=== PATIENT | female | born 1930 | race Caucasian/White ===

== ENCOUNTER → 2017-03-01 | Outpatient (REF) | payer MEDICARE ==
[~2017-03-01] MED LIST: ASCO500T PO; ASPI1TAB PO; CHOL4POW4 PO; FISH100049 PO; GABA600T PO; LEVO150T7 PO; OMEP40CA2 PO; OXYB5TA PO; PROP80CA PO; VITA200038 PO
[2017-03-01 19:44] LABS: MEAN CORPUSCULAR HEMOGLOBIN 36.4 pg (27.0-33.0); MEAN CORPUSCULAR HGB CONC 34.1 g/dl (32.0-36.5); MEAN CORPUSCULAR VOLUME 106.8 fl (80.0-96.0); RED CELL DISTRIBUTION WIDTH 12.8 % (11.5-14.5); WHITE BLOOD COUNT 7.9 K/mm3 (4.0-10.0)
[2017-03-01 19:49] LABS: ALBUMIN 3.3 GM/DL (3.2-5.2); ALKALINE PHOSPHATASE 81 U/L (45-117); ALT/SGPT 24 U/L (12-78); ANION GAP 5 MEQ/L (8-16); AST/SGOT 17 U/L (15-37); BILIRUBIN,TOTAL 0.4 MG/DL (0.2-1.0); BLOOD UREA NITROGEN 19 MG/DL (7-18); CALCIUM LEVEL 8.6 MG/DL (8.8-10.2); CARBON DIOXIDE LEVEL 30 MEQ/L (21-32); CHLORIDE LEVEL 108 MEQ/L (98-107); CHOLESTEROL LEVEL 194 MG/DL (<200); CREATININE FOR GFR 1.13 MG/DL (0.55-1.02); FREE T4 0.73 NG/DL (0.76-1.46); GLOMERULAR FILTRATION RATE 48.6 (>32); GLUCOSE, FASTING 83 MG/DL (83-110); POTASSIUM SERUM 4.6 MEQ/L (3.5-5.1); SODIUM LEVEL 143 MEQ/L (136-145); TOTAL PROTEIN 6.6 GM/DL (6.4-8.2); TRIGLYCERIDES LEVEL 595 MG/DL (<150)
== END ==
LOC: M SFHCADAM 16:01
PROVIDERS: ATTEND Family Medicine
DX: I11.9 Hypertensive heart disease without heart failure (principal); E03.9 Hypothyroidism, unspecified; E78.2 Mixed hyperlipidemia; E55.9 Vitamin D deficiency, unspecified

== ENCOUNTER → 2017-04-24 | Outpatient (CLI) | payer MEDICARE ==
[~2017-04-24] MED LIST changes: +E-Z-GAS II EFFERVESCENT PACKET (SODIUM BICARB./CITRIC ACID/SIMETHICONE) As Ordered ONE; +E-Z-HD 98% w/w 340GM SUSP BTL As Ordered ONE; +E-Z-PAQUE 96% w/w SUSP 176GM BTL As Ordered ONE; +HYOS125TA PO; +LEVO200T31 PO; +LORA0.5T11 PO; +MORP20SO3 PO; -OXYB5TA PO; +OXYB5TAB10 PO
--- NOTE | 2017-04-25 10:43 | REP ---
Clinical: dysphagia. Technique: Single and double contrast technique using barium sulfate substrates with real time fluoroscopic evaluation. Findings: Normal motility through the oropharynx and hypopharynx is appreciated without obvious mass/mass effect or contour abnormality. The esophagus demonstrates normal mucosal outline and distension without ulcerations, polyps, mass lesions, mucosal irregularities or extrinsic abnormalities. No areas of stenosis or stricture appreciated. No hiatal hernia or evidence for reflux during examination. Limited images of the stomach and duodenum demonstrate grossly normal appearance. Total fluoroscopic time: 1 minute 27 seconds . Impression: Normal esophagram/barium swallow study. Signed by Ezequiel Hernandez MD 04/25/2017 10:33 A
== END ==
LOC: M RAD 07:59
PROVIDERS: ATTEND Internal Medicine Gastroenterology
DX: K22.4 Dyskinesia of esophagus (principal)

== ENCOUNTER → 2017-05-12 | Outpatient (CLI) | payer MEDICARE ==
[~2017-05-12] VITALS: Ht 167.6 cm; Wt 88.5 kg
[~2017-05-12] MED LIST changes: -E-Z-GAS II EFFERVESCENT PACKET (SODIUM BICARB./CITRIC ACID/SIMETHICONE) As Ordered ONE; -E-Z-HD 98% w/w 340GM SUSP BTL As Ordered ONE; -E-Z-PAQUE 96% w/w SUSP 176GM BTL As Ordered ONE; +LIDOCAINE 2% INJ 100 MG/5 ML SDV (FOR ANES.) As Ordered ONE; +NS 1,000 ML IV ONE; +PROPOFOL 200 MG/20 ML VIAL As Ordered ONE
--- NOTE | 2017-05-12 07:48 | ROOR ---
Patient Name: Sunita Moreland Procedure Date: 05/12/2017 7:28 AM Date of : 1930 Age: 86 Room: [facility] Gender: Female Note Status: Finalized Procedure: Upper GI endoscopy Indications: Dysphagia Providers: Sloan VICTOR MD Referring MD: Piyush Sauer MD Requesting Provider: Medicines: Monitored Anesthesia Care Complications: No immediate complications. Procedure: Pre-Anesthesia Assessment: - The heart rate, respiratory rate, oxygen saturations, blood pressure, adequacy of pulmonary ventilation, and response to care were monitored throughout the procedure. The Endoscope was introduced through the mouth, and advanced to the second part of duodenum. The upper GI endoscopy was accomplished without difficulty. The patient tolerated the procedure well. Findings: The esophagus was normal. The stomach was normal. The examined duodenum was normal. No endoscopic abnormality was evident in the esophagus to explain the patient's complaint of dysphagia. It was decided, however, to proceed with dilation of the entire esophagus. The scope was withdrawn. Dilation was performed with a Cerrato dilator with no resistance at 54 Fr. Impression: - Normal esophagus. - Normal stomach. - Normal examined duodenum. - No endoscopic esophageal abnormality to explain patient's dysphagia. Empiric dilation with 54 Cerrato dilator without resistance. - No specimens collected. Recommendation: - Observe patient's clinical course. - I anticipate no further need for intervention. - Continue present medications. Sloan Victor MD Sloan VICTOR MD 05/12/2017 7:47:44 AM This report has been signed electronically. Number of Addenda: 0 Note Initiated On: 05/12/2017 7:28 AM Estimated Blood Loss: Estimated blood loss: none.
[2017-05-12 08:20] VITALS: BP 130/80
== END ==
LOC: M OPP 06:37
PROVIDERS: ATTEND Internal Medicine Gastroenterology
DX: R13.10 Dysphagia, unspecified (principal); K21.9 Gastro-esophageal reflux disease without esophagitis; M19.90 Unspecified osteoarthritis, unspecified site; Z86.73 Personal history of transient ischemic attack (TIA), and cerebral infarction without residual deficits; Z79.82 Long term (current) use of aspirin; Z79.899 Other long term (current) drug therapy; Z88.8 Allergy status to other drugs, medicaments and biological substances; Z91.018 Allergy to other foods; Z91.011 Allergy to milk products

== ENCOUNTER 2017-06-26 12:03 | Inpatient (IN) | payer MEDICARE ==
[~2017-06-26] VITALS: Ht 167.6 cm; Wt 92.5 kg
[~2017-06-26 12:03] MED LIST changes: -HYOS125TA PO; -LEVO200T31 PO; -LIDOCAINE 2% INJ 100 MG/5 ML SDV (FOR ANES.) As Ordered ONE; -LORA0.5T11 PO; -MORP20SO3 PO; -NS 1,000 ML IV ONE; -PROPOFOL 200 MG/20 ML VIAL As Ordered ONE
[2017-06-26] MEDS ORDERED: SUCRALFATE 1 GM TAB PO ONE (13:00)
[2017-06-26] MEDS ORDERED: NS 1,000 ML IV ONE (13:00)
[2017-06-26] MEDS ORDERED: PANTOPRAZOLE 40MG INJ (PROTONIX) (C9113) IV ONE (13:00)
[2017-06-26] MEDS ORDERED: ONDANSETRON 4MG/2ML VIAL (J2405) IV ONE (13:00)
[2017-06-26 13:08] LABS: BASO % 0.4 % (0.0-1.0); EOS # 0.3 K/mm3 (0.0-0.50); EOS % 2.9 % (0.0-3.0); LARGE UNSTAINED CELL # 0.4 K/mm3 (0.0-0.4); LARGE UNSTAINED CELL % 4.1 % (0.0-4.0); LYMPH # 3.2 K/mm3 (1.5-4.5); LYMPH % 35.2 % (24.0-44.0); MEAN CORPUSCULAR HEMOGLOBIN 35.3 pg (27.0-33.0); MEAN CORPUSCULAR HGB CONC 34.1 g/dl (32.0-36.5); MEAN CORPUSCULAR VOLUME 103.6 fl (80.0-96.0); MONO # 0.5 K/mm3 (0.0-0.8); NEUTROPHILS # 4.6 K/mm3 (1.8-7.7); NEUTROPHILS % 51.4 % (36.0-66.0); PLATELET COUNT, AUTOMATED 188 k/mm3 (150-450); RED CELL DISTRIBUTION WIDTH 12.6 % (11.5-14.5)
[2017-06-26] MEDS: MORPHINE 2 MG/ML 1ML SYRINGE IV PRN ×2 (13:12→19:34)
[2017-06-26] MEDS ORDERED: GASTROGRAFIN SOLUTION 30ML PO ONE (13:15)
[2017-06-26 13:20] LABS: INR 0.95
[2017-06-26 13:29] LABS: ALBUMIN 2.9 GM/DL (3.2-5.2); ALBUMIN/GLOBULIN RATIO 1.04 (1.00-1.93); ALKALINE PHOSPHATASE 64 U/L (45-117); ALT/SGPT 19 U/L (12-78); ANION GAP 6 MEQ/L (8-16); AST/SGOT 14 U/L (15-37); BILIRUBIN,DIRECT 0.1 MG/DL (0.0-0.2); BILIRUBIN,TOTAL 0.4 MG/DL (0.2-1.0); BLOOD UREA NITROGEN 24 MG/DL (7-18); CALCIUM LEVEL 8.6 MG/DL (8.8-10.2); CARBON DIOXIDE LEVEL 28 MEQ/L (21-32); CHLORIDE LEVEL 109 MEQ/L (98-107); CREATININE FOR GFR 0.88 MG/DL (0.55-1.02); GLOMERULAR FILTRATION RATE > 60.0 (>32); GLUCOSE, FASTING 90 MG/DL (83-110); POTASSIUM SERUM 4.1 MEQ/L (3.5-5.1); SODIUM LEVEL 143 MEQ/L (136-145); TOTAL PROTEIN 5.7 GM/DL (6.4-8.2)
[2017-06-26] MEDS ORDERED: GASTROGRAFIN SOLUTION 30ML (Q9963) PO ONE (13:45)
--- NOTE | 2017-06-26 14:08 | REP ---
Clinical: Lower chest and abdominal pain . Comparison: 09/07/2016 . Technique: PA and lateral. Findings: The mediastinum and cardiac silhouette are normal. The lung christiansen demonstrate chronic changes without acute consolidation, effusion, or pneumothorax. The skeletal structures are intact and normal. Evidence of prior bilateral axillary node dissection. Impression: 1. Chronic stable changes. No acute cardiopulmonary process. Signed by Ezequiel Hernandez MD 06/26/2017 02:00 P
[2017-06-26] MEDS ORDERED: ISOVUE-370 76% 100ML VIAL (Q9967) As Ordered ONE (14:41)
--- NOTE | 2017-06-26 15:26 | REP ---
Clinical: GI bleed. Technique: Axial contrast enhanced images from the lung bases to the pubic symphysis using oral and 100 ml Isovue 370 intravenous contrast material with coronal and sagittal re-formations. Comparison: 09/26/2006. Findings: Lung bases demonstrate chronic interstitial changes. Visualized portions of the heart and pericardium are normal. Liver, spleen, pancreas, and bilateral adrenal glands are normal. The patient is status post cholecystectomy with compensatory intrahepatic and extrahepatic biliary ductal dilatation. Kidneys demonstrate bilateral parapelvic cysts (left greater than right). The enteric system demonstrates diffuse colonic and sigmoid diverticulosis. There is no evidence for bowel obstruction or acute inflammatory process. Subtle mural thickening involving the mid sigmoid colon as well as the cecum/ very proximal ascending colon with small adjacent lymph nodes cannot be excluded and may warrant further evaluation including colonoscopy. Pelvis demonstrates normal bladder and evidence for prior hysterectomy. No ascites. No obvious intraperitoneal or retroperitoneal adenopathy. No obvious mass lesion. Atherosclerotic changes of the aorta and vasculature noted without aneurysm or dissection. Surrounding musculoskeletal structures demonstrate age-related changes without focal osseous abnormality. Impression: 1. Diverticulosis. Colonoscopy should be considered as subtle mural thickening at the cecum/proximal ascending colon and mid sigmoid colon cannot be excluded. No obvious acute enteric process otherwise appreciated. 2. Bilateral renal parapelvic cysts. 3. No further acute abdominopelvic pathology appreciated. Signed by Ezequiel Hernandez MD 06/26/2017 03:18 P
[2017-06-26] MEDS ORDERED: LEVO200T31 PO (16:36)
[2017-06-26] MEDS ORDERED: MORPHINE 2 MG/ML 1ML SYRINGE IV PRN (17:30)
[2017-06-26] MEDS ORDERED: ONDANSETRON 4MG/2ML VIAL (J2405) IV PRN (17:30)
[2017-06-26] MEDS: CIPROFLOXACIN 400 MG in APPROPRIATE DILUENT 1 EA IV SCH (18:00)
[2017-06-26] MEDS: PERCOCET 5MG/325MG TAB PO PRN ×2 (19:34→23:10)
[2017-06-26] MEDS: LR 1,000 ML IV SCH (19:34)
[2017-06-26 20:03] LABS: THYROXINE (T4) 5.8 UG/DL (4.5-12.0)
[2017-06-26] MEDS: metroNIDAZOLE 500 MG in APPROPRIATE DILUENT 1 EA IV SCH (22:28)
[2017-06-26 23:35] VITALS: BP 140/60
[2017-06-26] MEDS: SENOKOT S TAB PO SCH (23:55)
[2017-06-26] MEDS: VITAMIN D 1,000 INTERNATIONAL UNITS TABLET PO SCH (23:56)
[2017-06-26] MEDS: GABAPENTIN 300 MG CAP PO SCH (23:56)
[2017-06-26] MEDS: oxyBUTYnin 5 MG TAB PO SCH (23:56)
[2017-06-26] MEDS: OMEGA-3 1050MG CAPSULE PO SCH (23:56)
[2017-06-26] MEDS: ASCORBIC ACID 500 MG TAB PO SCH (23:56)
[2017-06-26] MEDS: PANTOPRAZOLE 40MG INJ (PROTONIX) (C9113) IV SCH (23:57)
[2017-06-27] VITALS (9 sets, daily range): BP systolic 84–133; BP diastolic 46–75
[2017-06-27] MEDS: metroNIDAZOLE 500 MG in APPROPRIATE DILUENT 1 EA IV SCH ×3 (05:08→21:19)
[2017-06-27 05:40] LABS: MEAN CORPUSCULAR HEMOGLOBIN 35.5 pg (27.0-33.0); MEAN CORPUSCULAR HGB CONC 33.7 g/dl (32.0-36.5); MEAN CORPUSCULAR VOLUME 105.3 fl (80.0-96.0); WHITE BLOOD COUNT 5.6 K/mm3 (4.0-10.0)
[2017-06-27 06:04] LABS: ALBUMIN 2.5 GM/DL (3.2-5.2); ALBUMIN/GLOBULIN RATIO 0.96 (1.00-1.93); ALKALINE PHOSPHATASE 57 U/L (45-117); ALT/SGPT 29 U/L (12-78); ANION GAP 7 MEQ/L (8-16); AST/SGOT 57 U/L (15-37); BILIRUBIN,TOTAL 0.5 MG/DL (0.2-1.0); BLOOD UREA NITROGEN 15 MG/DL (7-18); CALCIUM LEVEL 8.1 MG/DL (8.8-10.2); CARBON DIOXIDE LEVEL 28 MEQ/L (21-32); CHLORIDE LEVEL 111 MEQ/L (98-107); CREATININE FOR GFR 0.85 MG/DL (0.55-1.02); GLOMERULAR FILTRATION RATE > 60.0 (>32); GLUCOSE, FASTING 93 MG/DL (83-110); MAGNESIUM LEVEL 2.1 MG/DL (1.8-2.4); SODIUM LEVEL 146 MEQ/L (136-145); TOTAL PROTEIN 5.1 GM/DL (6.4-8.2)
--- NOTE | 2017-06-27 06:38 | HPE ---
DATE OF ADMISSION: 06/26/2017 PRIMARY CARE PROVIDER: Dr. Sauer CHIEF COMPLAINT: Blood in the stool, generalized weakness and abdominal discomfort. 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 Charcot foot, right foot. The patient presented since Monday with intermittent bright red blood per rectum since Monday. Over the last 24 hours, two episodes of bowel movement that was not loose, regular but with blood and dark. Also, the patient reported periumbilical pain intermittently and also generalized weakness for the past one to two days. The patient denies any chest pain, pressure or discomfort. Denies any nausea or vomiting. No urinary complaints, no back pain. In the emergency department (ED) the patient was found to be more anemic than baseline. Baseline the patient has a hemoglobin of 14. In the ED the patient was found to have a hemoglobin of 11.1. Subsequently the patient was admitted for further care. CT scan appreciated showing two areas of thickening consistent with colitis or inflammatory change. ALLERGIES: KRISTY INHIBITORS, PSEUDOEPHEDRINE, TAPES, TRANDOLAPRIL, CAFFEINE, FRUITS, MILK, VEGETABLES, TRAZOREL, CEPHALOSPORINS, GEMFIBROZIL, TETRACYCLINE, HYDROCHLOROTHIAZIDE, PREGABALIN. PAST MEDICAL HISTORY: 1. Peripheral neuropathy. 2. Hypertension. 3. Non-Hodgkin's lymphoma, follicular type. 4. Breast cancer. 5. Hypothyroidism. 6. Diastolic Grade 1 diastolic dysfunction. 7. TIA. 8. Irritable bowel syndrome. 9. Dyslipidemia. 10. Gastrointestinal reflux disease (GERD). 11. Impaired fasting glucose. 12. Vitamin D deficiency. 13. Degenerative disc disease. 14. Squamous cell cancer of the nose. 15. Villous adenoma of the colon. 16. Obstructive sleep apnea. 17. Charcot foot, right lower extremity. PAST SURGICAL HISTORY: 1. Removal of lymphoma from the face and under right arm. 2. Hysterectomy. 3. Appendectomy. 4. Gallbladder removal. 5. Left breast lumpectomy. 6. Removal of squamous cell cancer of left lower medial calf. 7. Colonoscopy with removal of villous adenoma 2004, repeat colonoscopy was done six years ago. 8. Esophagogastroduodenoscopy (EGD) recently done and negative. FAMILY HISTORY: Father with deep venous thrombosis (DVT). Mother with breast cancer. SOCIAL HISTORY: The patient does not smoke and does not drink alcoholic beverages. No illicit drug use. REVIEW OF SYSTEMS: Reported blood mixed with stool as well as abdominal discomfort, generalized weakness. All other review of systems were negative. HOME MEDICATIONS: - vitamin C 500 mg by mouth nightly - vitamin D 2000 units by mouth nightly - cholestyramine 4 grams by mouth daily - fish oil one capsule by mouth nightly - gabapentin 600 mg by mouth twice a day - levothyroxine 200 mcg by mouth daily - omeprazole 40 mg by mouth nightly - oxybutynin 5 mg by mouth nightly - propranolol 80 mg by mouth nightly PHYSICAL EXAMINATION: VITAL SIGNS: Temperature 97.7, pulse 71, respirations 16, blood pressure 113/66, pulse oxygen 98% on room air. GENERAL: Patient alert and oriented times three. No acute distress. HEENT: Normocephalic atraumatic. PULMONARY: Bilaterally clear to auscultation. CARDIAC: Regular rate and rhythm. Normal S1, S2. ABDOMEN: Soft, nontender, positive bowel sounds. No rebound, no guarding. EXTREMITIES: No clubbing, cyanosis or edema. Charcot foot, right lower extremity. LABORATORY DATA: WBC 9, hemoglobin 10.4, hematocrit 31.9, platelets 188. Chemistries: Sodium 142, potassium 4.1, chloride 109, bicarbonate 28, BUN 24, creatinine 0.88, lactic acid 1.5, TSH 54 , free T4 2. ASSESSMENT AND PLAN: This is an 86-year-old female patient with underlying medical history of peripheral neuropathy, hypertension, non-Hodgkin's lymphoma, breast cancer, hypothyroidism, grade I diastolic dysfunction, irritable bowel dysfunction, dyslipidemia, gastrointestinal reflux disease (GERD), degenerative disc disease, Charcot foot, obstructive sleep apnea, transient ischemic attack (TIA) admitted with gastrointestinal (GI) bleed with evidence of colitis. PROBLEM LIST: 1. GI bleed with abdominal discomfort, possibly secondary to colitis versus diverticular bleed. Consulted padded products finisher, Dr. Hobbs. The patient recently had esophagogastroduodenoscopy, Protonix twice a day. Clear liquid diet tonight, nothing by mouth after midnight. Cipro, and Flagyl as per Dr. Hobbs, intravenous fluids. Consented for transfusion. Monitor hemoglobin and hematocrit. 2. Hypothyroidism. TSH is markedly elevated. Continue Synthroid. Will need to repeat TSH. 3. Gastrointestinal reflux disease (GERD). Continue proton pump inhibitor. 4. Irritable bowel syndrome. Followup GI recommendations, continue current medications. 5. Vitamin D deficiency. Continue supplementation. 6. History of transient ischemic attack (TIAs). Patient is on baby aspirin which was on hold at this time given GI bleed. 7. Hypertension. Given GI bleed, holding blood pressure medications at this time. Will monitor blood pressure. 8. Impaired fasting glucose. Will continue to monitor. The patient is currently with normal glucose. 9. Degenerative disc disease. Pre medication as ordered. 10. History of villous adenoma. The patient is might benefit from a repeat colonoscopy given new CT finding. 11. Charcot foot. Need outpatient followup with podiatry. 12. History of grade 1 diastolic dysfunction. The patient is euvolemic, strict intake and output, will continue to monitor daily weight. 13. Deep venous thrombosis (DVT) prophylaxis. Given the patient has active GI bleed, sequential compresssion device. DISPOSITION: Pending GI followup, clinical improvement.
[2017-06-27] MEDS: LEVOTHYROXINE 100MCG TABLET (0.1MG) PO SCH (06:43)
[2017-06-27] MEDS: CIPROFLOXACIN 400 MG in APPROPRIATE DILUENT 1 EA IV SCH ×2 (06:45→17:59)
--- NOTE | 2017-06-27 08:37 | IPNPDOC ---
Subjective Date Seen The patient was seen on 06/27/17. Subjective Chief Complaint/HPI The patient is a 86-year-old female admitted with a reason for visit of Gi Bleed. Events since last encounter Pt states she feels better today. She had a little abd pain earlier but states it has resolved. She denies any current bleeding. Denies CP, SOB. Constitutional: Denies: Chills, Fever Pulmonary: Denies: Dyspnea Cardiovascular: Denies: Chest Pain Gastrointestinal: Denies: Nausea, Vomiting, Abdominal Pain Objective Physical Examination General Exam: Positive: Alert, No Acute Distress Neck Exam: Positive: Supple, Negative: JVD Chest Exam: Positive: Clear to auscultation Heart Exam: Positive: Rate Normal, Regular Rhythm Abdomen Exam: Positive: Normal bowel sounds, Soft, Negative: Tenderness Extremity Exam: Negative: Edema Assessment /Plan Problems (1) GI bleed Status: Acute Problem Specific Plan: Consult Specialist, Monitor Clinically, Repeat Labs Problem Text: 06/27 - Abd CT: "Diverticulosis. Colonoscopy should be considered as subtle mural thickening at the cecum/proximal ascending colon and mid sigmoid colon cannot be excluded. No obvious acute enteric process otherwise appreciated. Bilateral renal parapelvic cysts. No further acute abdominopelvic pathology appreciated." Hgb trending down to 10.0 this am compared to earlier Hgb at admission which was 11.1. Is getting IVF. GI has been consulted. Is on Cipro and Flagyl. (2) Anemia due to gastrointestinal blood loss Status: Acute Problem Text: Her hemoglobin is down today but her anemia is not severe. We will continue to monitor carefully with a transfusion threshold somewhere below a hemoglobin of 9.0 (given her history of cerebrovascular and presumably other vascular disease). (3) Hypertension Status: Chronic Problem Specific Plan: Monitor Clinically Problem Text: 06/27 - BPs soft. Antihypertensive meds held. Getting IVF. (4) Hypothyroidism Status: Chronic Problem Specific Plan: Monitor Clinically, Repeat Labs Problem Text: 06/27 - TSH was very high at 54.3. On Synthroid 200 mcg. Will need to repeat TSH. (5) GERD (gastroesophageal reflux disease) Status: Chronic Problem Specific Plan: Monitor Clinically Problem Text: 06/27 - On Protonix 40 mg IV q12h. (6) Villous adenoma Problem Specific Plan: Consult Specialist, Monitor Clinically, Repeat Labs Problem Text: 06/27 - GI has been consulted. (7) IFG (impaired fasting glucose) Status: Chronic Problem Specific Plan: Monitor Clinically, Repeat Labs Problem Text: 06/27 - BS have been good. Monitor. (8) Diastolic dysfunction Status: Chronic Problem Specific Plan: Monitor Clinically Problem Text: 06/27 - Appears compensated. (9) TIA (transient ischemic attack) Status: Chronic Problem Specific Plan: Monitor Clinically Problem Text: Pt was on aspirin 81 mg but that is currently held due to GI bleed. (10) Irritable bowel syndrome (IBS) Status: Chronic Problem Specific Plan: Monitor Clinically Plan/VTE VTE Prophylaxis Ordered?: Yes (TEDs and SCDs ordered) Plan Family Medicine Attending Note: I saw and examined Ms. Moreland, discussed with FLORENCE Hinton. Agree with their note as documented. Ms. Moreland reports that she feels a little bit uncomfortable today, but generally she is feeling okay. Her last partially bloody bowel movement was before she reached the floor. She is scheduled for a colonoscopy tomorrow with Dr. Hobbs. I appreciate his input and will look forward to his findings. (full roll inspector) VS, I&O, 24H, Fishbone Vital Signs/I&O Vital Signs Date Time Temp Pulse Resp B/P (MAP) Pulse Ox O2 Delivery O2 Flow Rate FiO2 06/27/17 07:15 96.4 56 20 94/54 (67) 98 Nasal Cannula 2.0 I&O- Last 24 Hours up to 6 AM 06/27/17 06:00 Intake Total 700 ml Output Total 600 ml Balance 100 ml Laboratory Data 24H LABS Laboratory Tests 2 06/26/17 12:52: White Blood Count 9.0, Red Blood Count 3.13L, Hemoglobin 11.1L, Hematocrit 32.5L , Mean Corpuscular Volume 103.6H, Mean Corpuscular Hemoglobin 35.3H, Mean Corpuscular Hemoglobin Concent 34.1, Red Cell Distribution Width 12.6, Platelet Count 188, Neutrophils (%) (Auto) 51.4, Lymphocytes (%) (Auto) 35.2, Monocytes ( %) (Auto) 6.0H, Eosinophils (%) (Auto) 2.9, Basophils (%) (Auto) 0.4, Neutrophils # (Auto) 4.6, Lymphocytes # (Auto) 3.2, Monocytes # (Auto) 0.5, Eosinophils # (Auto) 0.3, Basophils # (Auto) 0.0, Large Unclassified Cells % 4.1H, Large Unclassified Cells # 0.4, Prothrombin Time 12.8, Prothromb Time International Ratio 0.95, Anion Gap 6L, Glomerular Filtration Rate > 60.0, Calcium Level 8.6L, Aspartate Amino Transf (AST/SGOT) 14L, Alanine Aminotransferase (ALT/SGPT) 19, Alkaline Phosphatase 64, Total Bilirubin 0.4, Direct Bilirubin 0.1, Total Protein 5.7L, Albumin 2.9L, Albumin/Globulin Ratio 1.04, Lipase 63L 06/26/17 13:15: Lactic Acid Level 1.5 06/26/17 15:12: Urine Appearance CLEAR, Urine Color STRAW, Urine pH 5.0, Urine Specific [place] 1.008, Urine Protein NEGATIVE, Urine Glucose (UA) NEGATIVE, Urine Ketones NEGATIVE, Urine Urobilinogen 0.2, Urine Bilirubin NEGATIVE, Urine Leukocyte Esterase NEGATIVE, Urine Blood NEGATIVE, Urine Nitrite NEGATIVE, Urine WBC (Auto ) 0, Urine RBC (Auto) 2, Urine Hyaline Casts (Auto) 0, Urine Bacteria (Auto) NEGATIVE, Urine Squamous Epithelial Cells 0, Urine Sperm (Auto) 06/26/17 19:09: Thyroid Stimulating Hormone (TSH) 54.300H, Free Thyroxine Index 2.0, Thyroxine ( T4) 5.8, Triiodothyronine (T3) Uptake 34 06/27/17 05:21: Anion Gap 7L, Glomerular Filtration Rate > 60.0, Blood Urea Nitrogen 15, Creatinine 0.85, Sodium Level 146H, Potassium Level 4.0, Chloride Level 111H, Carbon Dioxide Level 28, Calcium Level 8.1L, Aspartate Amino Transf (AST/SGOT) 57H, Alanine Aminotransferase (ALT/SGPT) 29, Alkaline Phosphatase 57, Total Bilirubin 0.5, Total Protein 5.1L, Albumin 2.5L, Magnesium Level 2.1, Albumin/ Globulin Ratio 0.96L CBC/BMP Laboratory Tests 06/26/17 12:52 Red Blood Count 3.13 L, Mean Corpuscular Volume 103.6 H, Mean Corpuscular Hemoglobin 35.3 H, Mean Corpuscular Hemoglobin Concent 34.1, Red Cell Distribution Width 12.6, Neutrophils (%) (Auto) 51.4, Lymphocytes (%) (Auto) 35.2, Monocytes (%) (Auto) 6.0 H, Eosinophils (%) (Auto) 2.9, Basophils (%) ( Auto) 0.4, Neutrophils # (Auto) 4.6, Lymphocytes # (Auto) 3.2, Monocytes # (Auto ) 0.5, Eosinophils # (Auto) 0.3, Basophils # (Auto) 0.0 06/26/17 19:09 06/27/17 00:17 06/27/17 05:21 Red Blood Count 2.80 L, Mean Corpuscular Volume 105.3 H, Mean Corpuscular Hemoglobin 35.5 H, Mean Corpuscular Hemoglobin Concent 33.7, Red Cell Distribution Width 13.0, Calcium Level 8.1 L, Aspartate Amino Transf (AST/SGOT) 57 H, Alanine Aminotransferase (ALT/SGPT) 29, Alkaline Phosphatase 57, Total Bilirubin 0.5, Total Protein 5.1 L, Albumin 2.5 L Tom Salter RPA-Arianna Jun 27, 2017 8:37 am Carlton Ward MD Jun 28, 2017 10:59 pm
[2017-06-27] MEDS: PANTOPRAZOLE 40MG INJ (PROTONIX) (C9113) IV SCH ×2 (09:52→21:23)
[2017-06-27] MEDS: SENOKOT S TAB PO SCH ×2 (09:52→21:22)
[2017-06-27] MEDS: CHOLESTYRAMINE 4 GM PWD PKT PO SCH (09:52)
[2017-06-27] MEDS: GABAPENTIN 300 MG CAP PO SCH ×2 (09:53→21:21)
[2017-06-27] MEDS: LR 1,000 ML IV SCH ×3 (11:34→23:04)
[2017-06-27] MEDS: VITAMIN D 1,000 INTERNATIONAL UNITS TABLET PO SCH (21:00)
[2017-06-27] MEDS: ASCORBIC ACID 500 MG TAB PO SCH (21:00)
[2017-06-27] MEDS: OMEGA-3 1050MG CAPSULE PO SCH (21:00)
[2017-06-27] MEDS ORDERED: BISACODYL 5 MG TAB PO ONE (21:15)
[2017-06-27] MEDS ORDERED: GOLYTELY SOLN 4000 ML BTL PO ONE (21:15)
[2017-06-27] MEDS: oxyBUTYnin 5 MG TAB PO SCH (21:21)
[2017-06-28] VITALS (22 sets, daily range): BP systolic 100–139; BP diastolic 51–96; O2SAT 87–98
--- NOTE | 2017-06-28 00:20 | CR.PDOC ---
[facility] Consultation Consultation DATE OF CONSULTATION: Jun 27, 2017 at 18;30 PRIMARY CARE PHYSICIAN: Alec REFERRING PROVIDER: Dr. Shook ATTENDING PHYSICIAN: Dr. Shook REASON FOR CONSULTATION/CHIEF COMPLAINT: rectal bleeding and abnormal CT scan abdomen. HISTORY OF PRESENT ILLNESS: 86-year-old female patient with peripheral neuropathy, HTN, non-Hodgkin's lymphoma, gastrointestinal reflux disease (GERD) , history of villous adenoma of the colon in 2004, presented since Monday with intermittent bright red blood per rectum since Monday -- GI consulted for the same. Patient currently still having abdominal pain with atleast 2 bowel movements today. Denies any nausea or vomiting. No urinary complaints, no back pain. Also reports weight loss and loss of appetite. ALLERGIES: reviewed. KRISTY INHIBITORS, PSEUDOEPHEDRINE. PAST MEDICAL HISTORY: as above. PAST SURGICAL HISTORY: Hysterectomy, Appendectomy. Gallbladder removal. FAMILY HISTORY: no GI cancers. SOCIAL HISTORY: The patient does not smoke and does not drink alcoholic, No illicit drug use. Prior Endosocpies: Colonoscopy with removal of villous adenoma 2004, repeat colonoscopy - patient unsure if she had one. . Esophagogastroduodenoscopy (EGD) recently done and negative. REVIEW OF SYSTEMS: reviewed. GI: as above CVS; SOB, no chest pain Resp: some SOB. PHARMACY OPERATIONS MANAGER; generalized wekaness. Musculoskeletal: arthritis. ; no burning. HOME MEDICATIONS: reviewed. not on Plavix or anticoagulants. PHYSICAL EXAMINATION: VITAL SIGNS: Reviewed., GENERAL: AAO x 3. No acute distress. HEENT: Normocephalic atraumatic. PULMONARY: Bilaterally clear to auscultation. CARDIAC: Regular rate and rhythm. Normal S1, S2. ABDOMEN: Soft, nontender, positive bowel sounds. No rebound, no guarding. EXTREMITIES: No clubbing, cyanosis or edema. Charcot foot, right lower extremity. LABORATORY DATA: reviewed. CT abdomen: reviewed. Impression: -- Abnormal CT scan adbomen and h/o TV adenoma inpast -- Need to r/o colon mass. -- Recent work up for GERD by Dr. Victor - inclduing esophagogram - normal. Recommendations: -- CLear liquid diet -- Golytely 4 litres to be completed by 10 AM tomorrow. -- Patient and her educated about the Colonoscopy procedure in detail including indications, benefits, risks, and alternatives including no intervention. Patient wanted to know what is going on and agreed with procedure. Consent signed. - NPO except medications after the above preparation. - Avoid NSAIDs. plan of care discussed with patient and primary team. Allergies Coded Allergies: KRISTY Inhibitors (Verified Allergy, Unknown, 06/26/17) Pseudoephedrine (Verified Allergy, Unknown, TROUBLE BREATHING, 06/26/17) TAPE (Verified Allergy, Unknown, 06/26/17) Trandolapril (Verified Allergy, Unknown, 06/26/17) Caffeine (Verified Adverse Reaction, Severe, SHAKINESS,CANT SLEEP, 06/26/17) FRUIT (Verified Adverse Reaction, Intermediate, IBS SYMPTOMS, 06/26/17) Milk-related Compounds (Verified Adverse Reaction, Intermediate, IBS SYMPTOMS, 06/26/17) VEGETABLES (Verified Adverse Reaction, Intermediate, IBS SYMPTOMS, 06/26/17) Anastrozole (Verified Adverse Reaction, Mild, JOINT SWELLING, 06/26/17) Cephalosporins (Verified Adverse Reaction, Mild, BAD TASTE IN MOUTH, ) Gemfibrozil (Verified Adverse Reaction, Mild, BACKACHE, 06/26/17) Tetracycline (Verified Adverse Reaction, Mild, DOXYCYCLINE DYSPHAGIA, ) Hydrochlorothiazide (Verified Adverse Reaction, Unknown, INSOMNIA, 06/26/17) Pregabalin (Verified Adverse Reaction, Unknown, DISSINESS, BLURRED VISION , 06/26/17) Home Medications Scheduled Ascorbic Acid (Ascorbic Acid) 500 Mg Tab, 500 MG PO QHS, (Reported) Cholecalciferol (Vitamin D-3) 2,000 Unit Tab, 2,000 UNIT PO QHS, (Reported) Cholestyramine (Cholestyramine) 4 Gm Pow, 4 GM PO DAILY, (Reported) Fish Oil (Fish Oil 1000 mg) 1 Cap Cap, 1 CAP PO QHS, (Reported) Gabapentin (Gabapentin) 600 Mg Tab, 600 MG PO BID, (Reported) Levothyroxine Sodium (Levoxyl) 200 Mcg Tab, 200 MCG PO DAILY, (Reported) Omeprazole (Omeprazole) 40 Mg Cap, 40 MG PO QHS, (Reported) Oxybutynin Chloride (Oxybutynin Chloride) 5 Mg Tab, 5 MG PO QHS, (Reported) Propranolol HCl (Propranolol HCl ER) 80 Mg Cap, 80 MG PO QHS, (Reported) MARY DOLAN MD Jun 28, 2017 00:20
[2017-06-28] MEDS: LEVOTHYROXINE 100MCG TABLET (0.1MG) PO SCH (05:15)
[2017-06-28] MEDS: metroNIDAZOLE 500 MG in APPROPRIATE DILUENT 1 EA IV SCH ×3 (05:15→21:58)
[2017-06-28] MEDS: CIPROFLOXACIN 400 MG in APPROPRIATE DILUENT 1 EA IV SCH ×2 (05:16→18:11)
[2017-06-28 06:36] LABS: MEAN CORPUSCULAR HEMOGLOBIN 35.8 pg (27.0-33.0); MEAN CORPUSCULAR HGB CONC 33.8 g/dl (32.0-36.5); MEAN CORPUSCULAR VOLUME 105.8 fl (80.0-96.0); RED CELL DISTRIBUTION WIDTH 12.8 % (11.5-14.5)
[2017-06-28 07:00] LABS: ALBUMIN 2.5 GM/DL (3.2-5.2); ALBUMIN/GLOBULIN RATIO 0.89 (1.00-1.93); ALKALINE PHOSPHATASE 63 U/L (45-117); ALT/SGPT 38 U/L (12-78); ANION GAP 5 MEQ/L (8-16); AST/SGOT 32 U/L (15-37); BILIRUBIN,TOTAL 0.5 MG/DL (0.2-1.0); BLOOD UREA NITROGEN 11 MG/DL (7-18); CALCIUM LEVEL 8.3 MG/DL (8.8-10.2); CARBON DIOXIDE LEVEL 30 MEQ/L (21-32); CHLORIDE LEVEL 110 MEQ/L (98-107); GLOMERULAR FILTRATION RATE > 60.0 (>32); GLUCOSE, FASTING 89 MG/DL (83-110); MAGNESIUM LEVEL 2.1 MG/DL (1.8-2.4); POTASSIUM SERUM 3.9 MEQ/L (3.5-5.1); SODIUM LEVEL 145 MEQ/L (136-145); TOTAL PROTEIN 5.3 GM/DL (6.4-8.2)
--- NOTE | 2017-06-28 08:13 | IPNPDOC ---
Subjective Date Seen The patient was seen on 06/28/17. Subjective Chief Complaint/HPI The patient is a 86-year-old female admitted with a reason for visit of Gi Bleed. Events since last encounter Pt states she still has had some bleeding. Denies Abd pain, CP, SOB. Constitutional: Denies: Chills, Fever Pulmonary: Denies: Dyspnea Cardiovascular: Denies: Chest Pain Gastrointestinal: Denies: Abdominal Pain Objective Physical Examination General Exam: Positive: Alert, No Acute Distress Neck Exam: Positive: Supple, Negative: JVD Chest Exam: Positive: Clear to auscultation Heart Exam: Positive: Rate Normal, Regular Rhythm Abdomen Exam: Positive: Normal bowel sounds, Soft, Negative: Tenderness Extremity Exam: Negative: Edema Assessment /Plan Problems (1) GI bleed Status: Acute Problem Specific Plan: Consult Specialist, Monitor Clinically, Repeat Labs Problem Text: 06/28 - Dr Hobbs from GI following the pt and is planning endoscopy. Hgb stable at 10.4. On Cipro and Flagyl. 06/27 - Abd CT: "Diverticulosis. Colonoscopy should be considered as subtle mural thickening at the cecum/proximal ascending colon and mid sigmoid colon cannot be excluded. No obvious acute enteric process otherwise appreciated. Bilateral renal parapelvic cysts. No further acute abdominopelvic pathology appreciated." Hgb trending down to 10.0 this am compared to earlier Hgb at admission which was 11.1. Is getting IVF. GI has been consulted. Is on Cipro and Flagyl. (2) Anemia due to gastrointestinal blood loss Status: Acute Problem Text: Her hemoglobin is fairly stable. We will continue to monitor carefully with a transfusion threshold somewhere below a hemoglobin of 9.0 ( given her history of cerebrovascular and presumably other vascular disease). (3) Hypertension Status: Chronic Problem Specific Plan: Monitor Clinically Problem Text: 06/28 - Antihypertensives have been held. Getting IVF. 06/27 - BPs soft. Antihypertensive meds held. Getting IVF. (4) Hypothyroidism Status: Chronic Problem Specific Plan: Monitor Clinically, Repeat Labs Problem Text: TSH was very high at 54.3. On Synthroid 200 mcg. Will need to repeat TSH. (5) GERD (gastroesophageal reflux disease) Status: Chronic Problem Specific Plan: Monitor Clinically Problem Text: 06/27 - On Protonix 40 mg IV q12h. (6) Villous adenoma Problem Specific Plan: Consult Specialist, Monitor Clinically, Repeat Labs Problem Text: 06/28 - Dr Hobbs from GI following the pt and is planning endoscopy. 06/27 - GI has been consulted. (7) IFG (impaired fasting glucose) Status: Chronic Problem Specific Plan: Monitor Clinically, Repeat Labs Problem Text: BS have been good. Monitor. (8) Diastolic dysfunction Status: Chronic Problem Specific Plan: Monitor Clinically Problem Text: Appears compensated. (9) TIA (transient ischemic attack) Status: Chronic Problem Specific Plan: Monitor Clinically Problem Text: Pt was on aspirin 81 mg but that is currently held due to GI bleed. (10) Irritable bowel syndrome (IBS) Status: Chronic Problem Specific Plan: Monitor Clinically Plan/VTE VTE Prophylaxis Ordered?: Yes (TEDs and SCDs ordered) Plan Family Medicine Attending Note: I saw and examined Ms. Moreland, discussed with FLORENCE Hinton. Agree with their note as documented. I saw her toward the end of the day and she had had her colonoscopy by that point in time. I discussed the results of this with her including the very suspicious characteristics of the mass noted in the cecum. She reports that Dr. Hobbs had already discussed these with her and she is aware that we are waiting pathology results in order to be able to effectively plan what to do next. I will plan on consulting a surgeon tomorrow as I do believe she may need surgical care regardless of the pathology report. 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) VS, I&O, 24H, Fishbone Vital Signs/I&O Vital Signs Date Time Temp Pulse Resp B/P (MAP) Pulse Ox O2 Delivery O2 Flow Rate FiO2 06/28/17 04:11 Nasal Cannula 2.0 06/28/17 03:39 96.9 63 18 112/57 (75) 99 I&O- Last 24 Hours up to 6 AM 06/28/17 06:00 Intake Total 4700 ml Output Total 2250 ml Balance 2450 ml Laboratory Data 24H LABS Laboratory Tests 2 06/28/17 06:07: Anion Gap 5L, Glomerular Filtration Rate > 60.0, Blood Urea Nitrogen 11, Creatinine 0.80, Sodium Level 145, Potassium Level 3.9, Chloride Level 110H, Carbon Dioxide Level 30, Calcium Level 8.3L, Aspartate Amino Transf (AST/SGOT) 32, Alanine Aminotransferase (ALT/SGPT) 38, Alkaline Phosphatase 63, Total Bilirubin 0.5, Total Protein 5.3L, Albumin 2.5L, Magnesium Level 2.1, Albumin/ Globulin Ratio 0.89L CBC/BMP Laboratory Tests 06/27/17 12:20 06/27/17 18:27 06/28/17 00:14 06/28/17 06:07 Red Blood Count 2.92 L, Mean Corpuscular Volume 105.8 H, Mean Corpuscular Hemoglobin 35.8 H, Mean Corpuscular Hemoglobin Concent 33.8, Red Cell Distribution Width 12.8, Calcium Level 8.3 L, Aspartate Amino Transf (AST/SGOT) 32, Alanine Aminotransferase (ALT/SGPT) 38, Alkaline Phosphatase 63, Total Bilirubin 0.5, Total Protein 5.3 L, Albumin 2.5 L Microbiology Microbiology 06/28/17 Stool Occult Blood ([facility]AS[facility]), Received Pending Tom Salter RPA-Arianna Jun 28, 2017 8:13 am Carlton Ward MD Jun 30, 2017 12:06 am
[2017-06-28] MEDS: SENOKOT S TAB PO SCH ×2 (09:09→21:59)
[2017-06-28] MEDS: CHOLESTYRAMINE 4 GM PWD PKT PO SCH (09:09)
[2017-06-28] MEDS: PANTOPRAZOLE 40MG INJ (PROTONIX) (C9113) IV SCH ×2 (09:09→21:58)
[2017-06-28] MEDS: GABAPENTIN 300 MG CAP PO SCH ×2 (09:09→21:58)
[2017-06-28] MEDS: LR 1,000 ML IV SCH ×2 (12:06→23:41)
[2017-06-28] MEDS ORDERED: PROPOFOL 200 MG/20 ML VIAL As Ordered ONE (15:17)
--- NOTE | 2017-06-28 15:25 | ROOR ---
Patient Name: Sunita Moreland Procedure Date: 06/28/2017 2:51 PM Date of : 1930 Age: 86 Room: [facility] Gender: Female Note Status: Finalized Procedure: Colonoscopy Indications: Rectal bleeding, Abnormal CT of the GI tract Providers: Kam Hobbs MD Referring MD: 2. Inpatient 2. Inpatient Requesting Provider: Medicines: Monitored Anesthesia Care Complications: No immediate complications. Procedure: Pre-Anesthesia Assessment: - Prior to the procedure, a History and Physical was performed, and patient medications and allergies were reviewed. The patient is competent. The risks and benefits of the procedure and the sedation options and risks were discussed with the patient. All questions were answered and informed consent was obtained. Patient identification and proposed procedure were verified by the physician, the nurse and the valve technician in the procedure room. Mental Status Examination: alert and oriented. Airway Examination: normal oropharyngeal airway and neck mobility. Respiratory Examination: clear to auscultation. CV Examination: normal. Prophylactic Antibiotics: The patient does not require prophylactic antibiotics. Prior Anticoagulants: The patient has taken no previous anticoagulant or antiplatelet agents. ASA Grade Assessment: III - A patient with severe systemic disease. After reviewing the risks and benefits, the patient was deemed in satisfactory condition to undergo the procedure. The anesthesia plan was to use monitored anesthesia care (MAC). Immediately prior to administration of medications, the patient was re-assessed for adequacy to receive sedatives. The heart rate, respiratory rate, oxygen saturations, blood pressure, adequacy of pulmonary ventilation, and response to care were monitored throughout the procedure. The physical status of the patient was re-assessed after the procedure. The Colonoscope was introduced through the anus and advanced to the cecum, identified by appendiceal orifice and ileocecal valve. The colonoscopy was performed without difficulty. The patient tolerated the procedure well. The quality of the bowel preparation was adequate to identify polyps 6 mm and larger in size and fair. The ileocecal valve, the appendiceal orifice and the rectum were photographed. Scope insertion time was 4 minutes. Scope withdrawal time was 8 minutes. The total duration of the procedure was 15 minutes. Findings: The perianal and digital rectal examinations were normal. A frond-like/villous, fungating, infiltrative and ulcerated partially obstructing large mass was found in the cecum. The mass was partially circumferential. The mass measured five cm in length. Oozing was present. Mucosa was biopsied with a cold forceps for histology. One specimen bottle was sent to pathology. Verification of patient identification for the specimen was done by the physician and nurse using the patient's name, date and medical record number. Noted satillite polyps in proximal ascending colon. Estimated blood loss was minimal. Multiple small and large-mouthed diverticula were found from sigmoid to transverse colon. There was no evidence of diverticular bleeding. Non-bleeding external and internal hemorrhoids were found during retroflexion. The hemorrhoids were medium-sized. Impression: - Preparation of the colon was fair. 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 Biopsied. - Severe diverticulosis from sigmoid to transverse colon. There was no evidence of diverticular bleeding. - Non-bleeding external and internal hemorrhoids. Recommendation: - Patient has a contact number available for emergencies. The signs and symptoms of potential delayed complications were discussed with the patient. Return to normal activities tomorrow. Written discharge instructions were provided to the patient. - Return patient to [facility] for ongoing care. - High fiber diet. - Continue present medications. - Await pathology results. - Refer to a surgeon tomorrow. - Repeat colonoscopy in 1 year for surveillance based on pathology results. - Return to GI clinic in 2 weeks. - Return to primary care physician. Kam Hobbs MD Kam Hobbs MD 06/28/2017 3:25:27 PM This report has been signed electronically. Number of Addenda: 0 Note Initiated On: 06/28/2017 2:51 PM Estimated Blood Loss: Estimated blood loss was minimal.
[2017-06-28] MEDS: OMEGA-3 1050MG CAPSULE PO SCH (21:59)
[2017-06-28] MEDS: ASCORBIC ACID 500 MG TAB PO SCH (21:59)
[2017-06-28] MEDS: oxyBUTYnin 5 MG TAB PO SCH (21:59)
[2017-06-28] MEDS: VITAMIN D 1,000 INTERNATIONAL UNITS TABLET PO SCH (21:59)
[2017-06-29] VITALS (24 sets, daily range): BP systolic 111–140; BP diastolic 56–71; O2SAT 88–99
[2017-06-29] MEDS: metroNIDAZOLE 500 MG in APPROPRIATE DILUENT 1 EA IV SCH (04:37)
[2017-06-29] MEDS: LR 1,000 ML IV SCH (05:17)
[2017-06-29 05:51] LABS: MEAN CORPUSCULAR HEMOGLOBIN 36.3 pg (27.0-33.0); MEAN CORPUSCULAR HGB CONC 33.9 g/dl (32.0-36.5); MEAN CORPUSCULAR VOLUME 107.2 fl (80.0-96.0); RED CELL DISTRIBUTION WIDTH 13.1 % (11.5-14.5); WHITE BLOOD COUNT 4.8 K/mm3 (4.0-10.0)
[2017-06-29 06:00] LABS: ALBUMIN 2.3 GM/DL (3.2-5.2); ALBUMIN/GLOBULIN RATIO 0.96 (1.00-1.93); ALKALINE PHOSPHATASE 56 U/L (45-117); ALT/SGPT 26 U/L (12-78); ANION GAP 6 MEQ/L (8-16); AST/SGOT 23 U/L (15-37); BILIRUBIN,TOTAL 0.4 MG/DL (0.2-1.0); BLOOD UREA NITROGEN 6 MG/DL (7-18); CALCIUM LEVEL 7.9 MG/DL (8.8-10.2); CARBON DIOXIDE LEVEL 28 MEQ/L (21-32); CHLORIDE LEVEL 110 MEQ/L (98-107); GLOMERULAR FILTRATION RATE > 60.0 (>32); GLUCOSE, FASTING 97 MG/DL (83-110); MAGNESIUM LEVEL 1.8 MG/DL (1.8-2.4); POTASSIUM SERUM 3.5 MEQ/L (3.5-5.1); SODIUM LEVEL 144 MEQ/L (136-145); TOTAL PROTEIN 4.7 GM/DL (6.4-8.2)
[2017-06-29] MEDS: LEVOTHYROXINE 100MCG TABLET (0.1MG) PO SCH (06:17)
[2017-06-29] MEDS: CIPROFLOXACIN 400 MG in APPROPRIATE DILUENT 1 EA IV SCH (06:17)
--- NOTE | 2017-06-29 08:43 | IPNPDOC ---
Subjective Date Seen The patient was seen on 06/29/17. Subjective Chief Complaint/HPI The patient is a 86-year-old female admitted with a reason for visit of Gi Bleed. Events since last encounter Pt denies any new issues. Denies any current bleeding. Denies Abd pain, CP, SOB. Constitutional: Denies: Fever Pulmonary: Denies: Dyspnea Cardiovascular: Denies: Chest Pain Gastrointestinal: Denies: Abdominal Pain Objective Physical Examination General Exam: Positive: Alert, No Acute Distress Neck Exam: Positive: Supple, Negative: JVD Chest Exam: Positive: Clear to auscultation Heart Exam: Positive: Rate Normal, Regular Rhythm Abdomen Exam: Positive: Normal bowel sounds, Soft, Negative: Tenderness Extremity Exam: Negative: Edema Assessment /Plan Problems (1) TIA (transient ischemic attack) Status: Acute Response to Treatment: Worse Discussed With: Nurse, Glass Handler, Patient, Family with Pt Consent Problem Specific Plan: Monitor Clinically Problem Text: The patient had acutely worsening dysarthric symptoms starting about 10:30 AM. On further questioning of family members it appears that they had some concerns regarding her speech intelligibility stretching back as far as 2 days ago, however, they did not mention them to us, because they believed they were related to her acute illness and the hospital setting. I was called and informed about these changes at around 12:50 PM. I immediately assessed her and found she had significant dysarthria. She was only able to recite "[place] [employer] Little Parry" with about 50% intelligibility. She did not have any focal weakness noted. I ordered a stat CT of her head without contrast. I also immediately consulted Dr. Silverman of neurology. We had a discussion regarding thrombolysis. Our conclusions were that she was an unacceptable candidate for thrombolytic therapy because: the precise onset of her symptoms was not clear, she is currently admitted for an active GI bleed, she had a biopsy yesterday in a noncompressible area (cecum). I discussed this with her family right away. I also discussed the possibility of transfer to [place] for consideration for catheterization of her cerebral arteries and clot aspiration. I let them know that I feel that the risks associated with this procedure would likely outweigh the benefits given her current medical condition. The patient and her family carefully considered and agreed with my recommendations. I have ordered neuro checks every 2 hours 3 [address] Silverman wishes to start/resume antiplatelet therapy as soon as is safe, however, he does wish to speak to Dr. Hobbs before making the final decision on this. (hourly sign language interpreter) (2) Mass of colon Problem Specific Plan: Consult Specialist, Monitor Clinically Problem Text: 06/29 - Seen by Dr Hobbs and had Colonoscopy. 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 Biopsied. Severe diverticulosis from sigmoid to transverse colon. No evidence of diverticular bleeding. Non-bleeding external and internal hemorrhoids. Will consult surgery (3) GI bleed Status: Acute Problem Specific Plan: Consult Specialist, Monitor Clinically, Repeat Labs Problem Text: 06/29 - Seen by Dr Hobbs and had Colonoscopy. 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 Biopsied. Severe diverticulosis from sigmoid to transverse colon. No evidence of diverticular bleeding. Non-bleeding external and internal hemorrhoids. 06/28 - Dr Hobbs from GI following the pt and is planning endoscopy. Hgb stable at 10.4. On Cipro and Flagyl. 06/27 - Abd CT: "Diverticulosis. Colonoscopy should be considered as subtle mural thickening at the cecum/proximal ascending colon and mid sigmoid colon cannot be excluded. No obvious acute enteric process otherwise appreciated. Bilateral renal parapelvic cysts. No further acute abdominopelvic pathology appreciated." Hgb trending down to 10.0 this am compared to earlier Hgb at admission which was 11.1. Is getting IVF. GI has been consulted. Is on Cipro and Flagyl. (4) Hypertension Status: Chronic Problem Specific Plan: Monitor Clinically Problem Text: 06/29 - Antihypertensives have been held. Blood pressures have been stable off antihypertensives. Getting IVF. 06/28 - Antihypertensives have been held. Getting IVF. 06/27 - BPs soft. Antihypertensive meds held. Getting IVF. (5) Hypothyroidism Status: Chronic Problem Specific Plan: Monitor Clinically, Repeat Labs Problem Text: TSH was very high at 54.3. On Synthroid 200 mcg. Will need to repeat TSH. (6) GERD (gastroesophageal reflux disease) Status: Chronic Problem Specific Plan: Monitor Clinically Problem Text: 06/27 - On Protonix 40 mg IV q12h. (7) Villous adenoma Problem Specific Plan: Consult Specialist, Monitor Clinically, Repeat Labs Problem Text: 06/29 - Seen by Dr Hobbs and had Colonoscopy. 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 Biopsied. Severe diverticulosis from sigmoid to transverse colon. No evidence of diverticular bleeding. Non-bleeding external and internal hemorrhoids. Will consult surgery. 06/28 - Dr Hobbs from GI following the pt and is planning endoscopy. 06/27 - GI has been consulted. (8) IFG (impaired fasting glucose) Status: Chronic Problem Specific Plan: Monitor Clinically, Repeat Labs Problem Text: BS have been good. Monitor. (9) Diastolic dysfunction Status: Chronic Problem Specific Plan: Monitor Clinically Problem Text: Appears compensated. (10) Irritable bowel syndrome (IBS) Status: Chronic Problem Specific Plan: Monitor Clinically Plan/VTE VTE Prophylaxis Ordered?: Yes (TEDs and SCDs ordered) Plan Family Medicine Attending Note: I saw and examined Ms. Moreland, discussed with FLORENCE Hinton. Agree with their note as documented. We did consult Dr. Pruitt today. However most of my management today was overshadowed by the acute neurological changes noted above. (hourly sign language interpreter) VS, I&O, 24H, Fishbone Vital Signs/I&O Vital Signs Date Time Temp Pulse Resp B/P (MAP) Pulse Ox O2 Delivery O2 Flow Rate FiO2 06/29/17 06:00 96 Nasal Cannula 2.0 06/29/17 03:13 98.0 78 18 135/60 (85) I&O- Last 24 Hours up to 6 AM 06/29/17 05:59 Intake Total 4065 ml Output Total 1450 ml Balance 2615 ml Laboratory Data 24H LABS Laboratory Tests 2 06/28/17 12:28: Bedside Glucose (Misc Panel) 81L 06/29/17 05:32: Anion Gap 6L, Glomerular Filtration Rate > 60.0, Blood Urea Nitrogen 6L, Creatinine 0.80, Sodium Level 144, Potassium Level 3.5, Chloride Level 110H, Carbon Dioxide Level 28, Calcium Level 7.9L, Aspartate Amino Transf (AST/SGOT) 23, Alanine Aminotransferase (ALT/SGPT) 26, Alkaline Phosphatase 56, Total Bilirubin 0.4, Total Protein 4.7L, Albumin 2.3L, Magnesium Level 1.8, Albumin/ Globulin Ratio 0.96L CBC/BMP Laboratory Tests 06/28/17 12:28 06/28/17 18:11 06/29/17 05:32 Calcium Level 7.9 L, Aspartate Amino Transf (AST/SGOT) 23, Alanine Aminotransferase (ALT/SGPT) 26, Alkaline Phosphatase 56, Total Bilirubin 0.4, Total Protein 4.7 L, Albumin 2.3 L 06/29/17 05:33 Red Blood Count 2.57 L, Mean Corpuscular Volume 107.2 H, Mean Corpuscular Hemoglobin 36.3 H, Mean Corpuscular Hemoglobin Concent 33.9, Red Cell Distribution Width 13.1 Microbiology Microbiology 06/28/17 Stool Occult Blood (KASI) - Final, Complete Tom Salter Jun 29, 2017 8:43 am Carlton Ward MD Jun 30, 2017 12:22 am
[2017-06-29] MEDS: SENOKOT S TAB PO SCH ×2 (08:47→21:10)
[2017-06-29] MEDS: GABAPENTIN 300 MG CAP PO SCH ×2 (08:48→21:09)
[2017-06-29] MEDS: CHOLESTYRAMINE 4 GM PWD PKT PO SCH (08:48)
[2017-06-29] MEDS: PANTOPRAZOLE 40MG INJ (PROTONIX) (C9113) IV SCH (08:48)
--- NOTE | 2017-06-29 13:30 | REP ---
CT Head without contrast HISTORY: Dysarthria COMPARISON: 09/07/2016 An area of decreased attenuation is present in the right thalamus. This represents an old lacunar infarction. Areas of increased signal intensity on T2-weighted images are present in the periventricular and subcortical white matter. This represents small-vessel ischemic disease. There is no intraparenchymal hemorrhage, acute infarct, mass or midline shift. The ventricular system and cortical sulci as well as subarachnoid space in the posterior fossa are dilated consistent with mild volume loss. There is no extra cerebral collection. There is no fracture. The visualized sinuses are clear. IMPRESSION: 1. Old right thalamic lacunar infarction. 2. Small vessel ischemic disease. 3. Mild volume loss. Signed by Robe Riddle MD 06/29/2017 01:22 P
[2017-06-29] MEDS: metroNIDAZOLE (FLAGYL) 500 MG TAB PO SCH ×2 (15:22→21:09)
[2017-06-29] MEDS: CIPROFLOXACIN 500 MG TAB PO SCH (16:56)
--- NOTE | 2017-06-29 20:50 | REPUSA ---
MRI of the brain. Clinical history: Aphasia. Technique: Multiecho multiplanar MRI images of the brain were obtained without administration of cont rast. Diffusion weighted images with ADC mapping was also obtained. Findings: The ventricles and sulci are symmetric but prominent in size bilaterally. The brain parenchyma demons trates scattered areas of subcortical and periventricular low T2 hyperintensity. There is no midline shift, mass effect, or extra-axial fluid collection. The midline intracranial structures do not demon strate any gross abnormalities. The cervical cranial junction is intact. The orbits are unremarkable. The visualized paranasal sinuses and mastoid air cells are clear. The osseous structures and superfi cial soft tissues are unremarkable. The vascular structures demonstrate appropriate flow voids. Impression: No evidence of acute hemorrhage or infarct. Moderate age-related atrophy and chronic smal l vessel ischemic disease.
[2017-06-29] MEDS: oxyBUTYnin 5 MG TAB PO SCH (21:09)
[2017-06-29] MEDS: VITAMIN D 1,000 INTERNATIONAL UNITS TABLET PO SCH (21:09)
[2017-06-29] MEDS: PANTOPRAZOLE 40MG TAB (PROTONIX) PO SCH (21:09)
[2017-06-29] MEDS: ASCORBIC ACID 500 MG TAB PO SCH (21:09)
[2017-06-29] MEDS: OMEGA-3 1050MG CAPSULE PO SCH (21:10)
[2017-06-30] VITALS: BP 119/57
[2017-06-30 04:00] VITALS: BP 139/67
[2017-06-30] MEDS: metroNIDAZOLE (FLAGYL) 500 MG TAB PO SCH ×3 (05:47→21:57)
[2017-06-30] MEDS: LEVOTHYROXINE 100MCG TABLET (0.1MG) PO SCH (05:48)
[2017-06-30] MEDS: CIPROFLOXACIN 500 MG TAB PO SCH ×2 (05:48→18:29)
[2017-06-30 06:02] LABS: MEAN CORPUSCULAR HEMOGLOBIN 34.9 pg (27.0-33.0); MEAN CORPUSCULAR HGB CONC 32.2 g/dl (32.0-36.5); MEAN CORPUSCULAR VOLUME 108.3 fl (80.0-96.0); RED CELL DISTRIBUTION WIDTH 13.5 % (11.5-14.5); WHITE BLOOD COUNT 5.7 K/mm3 (4.0-10.0)
[2017-06-30 06:12] LABS: ALBUMIN 2.5 GM/DL (3.2-5.2); ALBUMIN/GLOBULIN RATIO 0.93 (1.00-1.93); ALKALINE PHOSPHATASE 58 U/L (45-117); ALT/SGPT 28 U/L (12-78); ANION GAP 10 MEQ/L (8-16); AST/SGOT 30 U/L (15-37); BILIRUBIN,TOTAL 0.4 MG/DL (0.2-1.0); BLOOD UREA NITROGEN 5 MG/DL (7-18); CALCIUM LEVEL 8.4 MG/DL (8.8-10.2); CARBON DIOXIDE LEVEL 25 MEQ/L (21-32); CHLORIDE LEVEL 113 MEQ/L (98-107); CREATININE FOR GFR 0.82 MG/DL (0.55-1.02); GLOMERULAR FILTRATION RATE > 60.0 (>32); GLUCOSE, FASTING 107 MG/DL (83-110); POTASSIUM SERUM 3.5 MEQ/L (3.5-5.1); SODIUM LEVEL 148 MEQ/L (136-145); TOTAL PROTEIN 5.2 GM/DL (6.4-8.2)
[2017-06-30 07:15] VITALS: BP 112/61
[2017-06-30] MEDS: SENOKOT S TAB PO SCH ×2 (08:02→21:57)
[2017-06-30] MEDS: CHOLESTYRAMINE 4 GM PWD PKT PO SCH (08:02)
[2017-06-30] MEDS: GABAPENTIN 300 MG CAP PO SCH ×2 (08:02→21:58)
[2017-06-30] MEDS: PANTOPRAZOLE 40MG TAB (PROTONIX) PO SCH (08:02)
--- NOTE | 2017-06-30 11:11 | CR ---
DATE OF CONSULTATION: 06/29/2017 REFERRING PHYSICIAN: Dr. Carlton Ward. REASON FOR CONSULTATION: Sudden-onset slurred speech. HISTORY OF PRESENT ILLNESS: Sunita Moreland is an 86-year-old woman with history of non-Hodgkin's lymphoma, acid reflux, villous adenoma of colon, who presented to [facility] due to bright red rectal bleeding since Monday. The patient was taking aspirin every other day but stopped taking it on the day when she started having rectal bleeding. The patient was admitted at [facility] due to transient ischemic attack in August 2016, when she developed sudden onset aphasia which improved. Her MRI scan of brain showed small vessel disease of brain at that time. MRA of brain showed mild carotid artery atherosclerosis. Ultrasound showed less than 50% bilateral carotid artery stenosis. Echocardiogram showed ejection fraction 65%. The patient was taking daily aspirin since then, but decreased to every other day few months ago. She stopped taking aspirin completely on the day when she started having rectal bleeding. She had a biopsy of colonic lesion for possible colon cancer versus large adenoma. Biopsy was performed yesterday. The patient states that she is allergic to yarn and fabric and whenever she gets exposed to these, she loses her voice. She had an episode of altered speech in March 2017, as well. Yesterday she felt her speech was slightly off. This morning her speech got worse around 10:[address] Ward called me around 01:10 p.m. that she had worsening of her speech. It was suspected that she may be having a stroke in evolution. Due to unclear time of onset, rectal bleeding and biopsy of colon yesterday, she was not a candidate for intravenous t-PA. STAT CT scan of head did not show any acute disease. Her symptoms started improving around 3 p.m., and by 5 o'clock she felt back to her normal self. She did not have weakness of arms and legs. She had off-and-on back pain for many years. She denies any headaches, neck pain, diplopia, shortness of breath or drooping of eyelids. She denies any falls or loss of consciousness. PAST MEDICAL HISTORY: Transient ischemic attacks, small-vessel ischemic disease of brain, current rectal bleeding with a possible colon mass. Hysterectomy, appendectomy, cholecystectomy, non-Hodgkin's lymphoma, acid reflux, peripheral neuropathy. CURRENT MEDICATIONS: - gabapentin 600 mg by mouth twice a day - levothyroxine 200 mcg by mouth diagnosis - Prilosec 40 mg by mouth daily - oxybutynin 5 mg by mouth at bedtime - propranolol 80 mg by mouth at bedtime - fish oil 1000 mg by mouth daily She was on aspirin 81 mg every other day until she started having rectal bleeding so she stopped taking it on her own. SOCIAL HISTORY: She denies smoking, alcohol or illicit drugs. FAMILY HISTORY: There is no family history of cancers. REVIEW OF SYSTEMS: All systems were reviewed and found to be noncontributory except as mentioned history present illness. PHYSICAL EXAMINATION: VITAL SIGNS: 97% saturation on two liters nasal cannula oxygen, temperature 97.2, pulse 75, respiratory 18, blood pressure 111/71. HEART: Regular rate and rhythm. LUNGS: Clear to auscultation. ABDOMEN: Soft, nontender, nondistended. NEUROLOGIC EXAMINATION: The patient is awake, alert, oriented to place, person and time. Normal speech comprehension and repetition. Extraocular muscles are intact. No facial weakness. Tongue and uvula midline. 5/5 strength in all four extremities. Deep tendon reflexes are 1+ in arms and knees, and absent at ankles. She has decreased cold, pinprick, vibration, sensation in her feet. Gait was not tested. DIAGNOSTIC STUDIES: As described above. CT scan of head did not show any acute disease today. It showed small vessel ischemic disease of brain which was also seen on her MRI scans in August 2016, as described above. ASSESSMENT: 1. Suspected transient ischemic attack. 2. Current rectal bleeding with a colon mass which is suspicious for adenoma or colon cancer. 3. History of transient ischemic attacks and small-vessel disease of brain. 4. Less than 50% bilateral carotid artery stenosis in past. PLAN: 1. MRI brain. 2. I discussed with her talkback host, Dr. Hobbs, who does not feel comfortable starting her on Plavix. He thinks that she may be able to start aspirin 81 mg by mouth daily once her hematocrit is stable. 3. Physical and occupational therapy.
--- NOTE | 2017-06-30 11:42 | IPNPDOC ---
Subjective Date Seen The patient was seen on 06/30/17. Subjective Chief Complaint/HPI The patient is a 86-year-old female admitted with a reason for visit of Gi Bleed. Events since last encounter Patient feels well. Her family feels that her speech is improved, but not back to baseline yet. Constitutional: Denies: Chills, Fever ENT: Denies: Head Aches Pulmonary: Denies: Dyspnea, Cough Cardiovascular: Denies: Chest Pain, Palpitations, Orthopnea Gastrointestinal: Denies: Nausea, Vomiting, Abdominal Pain (resolved), Diarrhea , Constipation Neurological: Reports: Other Symptoms (Back to baseline per patient) Objective Physical Examination General Exam: Positive: Alert, No Acute Distress Neck Exam: Positive: Supple, Negative: JVD Chest Exam: Positive: Clear to auscultation Heart Exam: Positive: Rate Normal, Regular Rhythm Abdomen Exam: Positive: Normal bowel sounds, Soft, Negative: Tenderness Extremity Exam: Negative: Edema Neuro Exam: Positive: Other (Alert, Oriented x 3, speech clear - has rare occassions in the course of a conversation when she has trouble finding a word - she states this is at baseline for her. face symmetric, ate breakfast withotu difficulty swallowing) Assessment /Plan Problems (1) TIA (transient ischemic attack) Status: Acute Response to Treatment: Worse Discussed With: Nurse, Gas Meter Reader, Patient, Family with Pt Consent Problem Specific Plan: Monitor Clinically Problem Text: 06/30 - speech is not quite back to baseline. She has trouble finding words on rare occasion during the course of my conversation with her today which she states has been going on for a while. Per Neurology, should start ASA if GI bleeding issue stable (2) Mass of colon Problem Specific Plan: Consult Specialist, Monitor Clinically Problem Text: 06/30 - path report shows high grade mod-poorly differentiated adenocarcinoma colon Surgical Consult in computer, but no note yet 06/29 - Seen by Dr Hobbs and had Colonoscopy. 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 Biopsied. Severe diverticulosis from sigmoid to transverse colon. No evidence of diverticular bleeding. Non-bleeding external and internal hemorrhoids. (3) GI bleed Status: Acute Problem Specific Plan: Consult Specialist, Monitor Clinically, Repeat Labs Problem Text: 06/30 - see above regarding colon cancer - Hgb stable Probably could d/c abx if no longer think bleeding was from Diverticulitis - * d/W attending (4) Hypertension Status: Chronic Problem Specific Plan: Monitor Clinically Problem Text: 06/30 - Antihypertensives have been held. Blood pressures have been stable off antihypertensives. (5) Hypothyroidism Status: Chronic Problem Specific Plan: Monitor Clinically, Repeat Labs Problem Text: TSH was very high at 54.3. On Synthroid 200 mcg. 06/30 - Although TSH elevation could be acute phase, this seems very high for that. I will decrease dose of Synthroid - will need levels rechecked in 6 - 8 weeks (6) GERD (gastroesophageal reflux disease) Status: Chronic Problem Specific Plan: Monitor Clinically Problem Text: 06/30 - stable - change to once daily PPI (7) Villous adenoma Problem Specific Plan: Consult Specialist, Monitor Clinically, Repeat Labs Problem Text: 06/29 - Seen by Dr Hobbs and had Colonoscopy. 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 Biopsied. Severe diverticulosis from sigmoid to transverse colon. No evidence of diverticular bleeding. Non-bleeding external and internal hemorrhoids. Will consult surgery. 06/28 - Dr Hobbs from GI following the pt and is planning endoscopy. 06/27 - GI has been consulted. (8) IFG (impaired fasting glucose) Status: Chronic Problem Specific Plan: Monitor Clinically, Repeat Labs Problem Text: BS have been good. Monitor. (9) Diastolic dysfunction Status: Chronic Problem Specific Plan: Monitor Clinically Problem Text: Appears compensated. Plan/VTE VTE Prophylaxis Ordered?: Yes (TEDs and SCDs ordered) Plan Family Medicine Attending Note: I saw and examined Ms. Moreland, discussed with FLORENCE Garcia. Agree with their note as documented. However, there were several significant changes that happened between when Gayle saw her and when I saw her. First her symptoms passed 24h and her TIA is now a CVA. Second her pathology report came back and I spoke with her and her directly about the results. We discussed what this is and what the basic treatment options are: palliative, aggressive tx including surgery, chemotherapy and possible radiation. After careful consideration she clearly expressed that she wants "no more operations." If that means that she has to go the palliative route than she is willing to do that. She may be open to the idea of chemotherapy with no surgery if that is even a possibility. We then turned our attention to her stroke. I explained that I'd like to start her on an ASA as a preventative measure, but that could start/worsen bleeding around her colon cancer. I also recommended ultrasound of her carotids. She asked why I wanted to do an ultrasound of her carotids. I explained that if we found a stenosis she may need a procedure to open it up or stabilize a plaque to prevent future CVAs. She reiterated to me that she wants "no more operations" and asked if the U/S would be necessary if we weren't going to do anything procedural about it. I admitted that the answer was probably no; all we'd do was start her on ASA and see how it goes. She agreed to starting the 81mg ASA, however, if she has further bleeding she plans on stopping it. At this point she and her asked about a palliative care or Hospice referral. I briefly reviewed when this would be appropriate and she stated that she was ready to seriously consider palliative care. I agreed to request the consultation and we reviewed/updated her MOLST form. I met with several different family members after this, with her present, to explain the turn of events and her most recently expressed wishes.(visual basic developer) VS, I&O, 24H, Fishbone Vital Signs/I&O Vital Signs Date Time Temp Pulse Resp B/P (MAP) Pulse Ox O2 Delivery O2 Flow Rate FiO2 06/30/17 08:00 Room Air 06/30/17 07:15 97.1 77 18 112/61 (78) 95 2.0 I&O- Last 24 Hours up to 6 AM 06/30/17 05:59 Intake Total 1470 ml Output Total 1100 ml Balance 370 ml Laboratory Data 24H LABS Laboratory Tests 2 06/29/17 12:47: Bedside Glucose (Misc Panel) 92 06/30/17 05:34: Anion Gap 10, Glomerular Filtration Rate > 60.0, Blood Urea Nitrogen 5L, Creatinine 0.82, Sodium Level 148H, Potassium Level 3.5, Chloride Level 113H, Carbon Dioxide Level 25, Calcium Level 8.4L, Aspartate Amino Transf (AST/SGOT) 30, Alanine Aminotransferase (ALT/SGPT) 28, Alkaline Phosphatase 58, Total Bilirubin 0.4, Total Protein 5.2L, Albumin 2.5L, Albumin/Globulin Ratio 0.93L CBC/BMP Laboratory Tests 06/30/17 05:34 Red Blood Count 2.78 L, Mean Corpuscular Volume 108.3 H, Mean Corpuscular Hemoglobin 34.9 H, Mean Corpuscular Hemoglobin Concent 32.2, Red Cell Distribution Width 13.5, Calcium Level 8.4 L, Aspartate Amino Transf (AST/SGOT) 30, Alanine Aminotransferase (ALT/SGPT) 28, Alkaline Phosphatase 58, Total Bilirubin 0.4, Total Protein 5.2 L, Albumin 2.5 L Microbiology Microbiology 06/28/17 Stool Occult Blood ([facility]) - Final, Complete CHAPARRO BURGOS PA-C Jun 30, 2017 11:42 Carlton Ward MD Jun 30, 2017 23:58
[2017-06-30 12:00] VITALS: BP 131/61
[2017-06-30 16:00] VITALS: BP 136/64
--- NOTE | 2017-06-30 18:35 | IPNPDOC ---
Date Seen The patient was seen on 06/30/17. Progress Note Interval history: Patient was noted with slurred speach and was worked up for TIA -- seen by neurologist. I spoke with neurologist in person. Also reviewed the CT abdomen findings with radiologist in person to review any distant metastases. Patient denies any new symptoms or more rectal bleeding. Tolerating diet. Family already educated about the colonoscopy findings and aware of cancer diagnosis. Colonoscopy findings: - Preparation of the colon was fair. Procedure completed till cecum and TI opening is narrowed due to the tumour tissue. 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 Biopsied. - Severe diverticulosis from sigmoid to transverse colon. There was no evidence of diverticular bleeding. - Non-bleeding external and internal hemorrhoids. Exam: Vitals noted. Abdomen: soft, non distended, normal bowel sounds. Labs: pathology results are reported today - Poorly differentiated adenocarcinoma of colon. Impression: -- poorly differentiated adenocarcinoma of colon - without distant metastases on CT scan abdomen. ( reviewed with radiology). Recommendation: - High fiber diet. - Continue present medications. - NO contraindication from GI perspective- for giving aspirin for the patient. - IN view of ulcerated mass and need for further management would continue holding Plavix for now. If high risk for stroke then need to discuss the risks of bleeding and benefits before starting it. - follow up with surgery recommendations - Oncology consult. - Consider discussion of the advanced directive and goals of care based on the above. - Repeat colonoscopy based on the above and prognosis. - Return to GI clinic in 2 - 4 weeks upon discharge. - Recall GI if any acute change in status. VS, I&O, 24H, Fishbone Laboratory Data CBC/BMP Laboratory Tests 06/30/17 05:34 Red Blood Count 2.78 L, Mean Corpuscular Volume 108.3 H, Mean Corpuscular Hemoglobin 34.9 H, Mean Corpuscular Hemoglobin Concent 32.2, Red Cell Distribution Width 13.5, Calcium Level 8.4 L, Aspartate Amino Transf (AST/SGOT) 30, Alanine Aminotransferase (ALT/SGPT) 28, Alkaline Phosphatase 58, Total Bilirubin 0.4, Total Protein 5.2 L, Albumin 2.5 L MARY DOLAN MD Jun 30, 2017 18:35
[2017-06-30 19:53] VITALS: BP 135/58
[2017-06-30] MEDS: VITAMIN D 1,000 INTERNATIONAL UNITS TABLET PO SCH (21:56)
[2017-06-30] MEDS: ASCORBIC ACID 500 MG TAB PO SCH (21:57)
[2017-06-30] MEDS: oxyBUTYnin 5 MG TAB PO SCH (21:57)
[2017-06-30] MEDS: OMEGA-3 1050MG CAPSULE PO SCH (21:57)
[2017-07-01] VITALS (7 sets, daily range): BP systolic 98–141; BP diastolic 54–72; O2SAT 91
[2017-07-01 05:46] LABS: MEAN CORPUSCULAR HGB CONC 33.8 g/dl (32.0-36.5); MEAN CORPUSCULAR VOLUME 106.6 fl (80.0-96.0); RED CELL DISTRIBUTION WIDTH 13.3 % (11.5-14.5); WHITE BLOOD COUNT 6.7 K/mm3 (4.0-10.0)
[2017-07-01] MEDS: LEVOTHYROXINE 75MCG TABLET (0.075MG) PO SCH (05:52)
[2017-07-01] MEDS: metroNIDAZOLE (FLAGYL) 500 MG TAB PO SCH (05:52)
[2017-07-01] MEDS: LEVOTHYROXINE 100MCG TABLET (0.1MG) PO SCH (05:52)
[2017-07-01] MEDS: CIPROFLOXACIN 500 MG TAB PO SCH (05:52)
[2017-07-01 06:11] LABS: ALBUMIN 2.3 GM/DL (3.2-5.2); ALBUMIN/GLOBULIN RATIO 0.85 (1.00-1.93); ALKALINE PHOSPHATASE 56 U/L (45-117); ALT/SGPT 30 U/L (12-78); ANION GAP 7 MEQ/L (8-16); AST/SGOT 38 U/L (15-37); BILIRUBIN,TOTAL 0.3 MG/DL (0.2-1.0); BLOOD UREA NITROGEN 6 MG/DL (7-18); CALCIUM LEVEL 8.1 MG/DL (8.8-10.2); CARBON DIOXIDE LEVEL 28 MEQ/L (21-32); CHLORIDE LEVEL 112 MEQ/L (98-107); CREATININE FOR GFR 0.83 MG/DL (0.55-1.02); GLOMERULAR FILTRATION RATE > 60.0 (>32); GLUCOSE, FASTING 105 MG/DL (83-110); POTASSIUM SERUM 3.4 MEQ/L (3.5-5.1); SODIUM LEVEL 147 MEQ/L (136-145)
[2017-07-01] MEDS: GABAPENTIN 300 MG CAP PO SCH ×2 (08:05→20:25)
[2017-07-01] MEDS: SENOKOT S TAB PO SCH ×2 (08:05→20:25)
[2017-07-01] MEDS: ASPIRIN 81 MG ENTERIC TAB PO SCH (08:05)
[2017-07-01] MEDS: PANTOPRAZOLE 40MG TAB (PROTONIX) PO SCH (08:05)
[2017-07-01] MEDS: CHOLESTYRAMINE 4 GM PWD PKT PO SCH (08:06)
--- NOTE | 2017-07-01 11:50 | IPN ---
DATE: 07/01/2017 Sunita is seen in the progressive care unit (PCU). Case has been discussed extensively with Dr. Ward. She has a colon cancer with a high-grade moderate to poorly differentiated adenocarcinoma of the colon from a cecal biopsy. She had a recent transient ischemic attack (TIA). Her speech has improved today. PHYSICAL EXAMINATION: Blood pressure 98/54, pulse 85, respiratory rate 20, 94% oxygen saturation. General Appearance: Elderly, frail, resting comfortably. Speech is dysarthric but improved from yesterday. No focal weakness. Lungs: Clear. Heart: Regular rhythm. Abdomen: Soft, nontender. IMPRESSION: 1. Recent stroke with aphasia. We restarted her aspirin. Avoid more potent antiplatelet drugs, anticoagulants due to bleeding/colon cancer. 2. Cecal adenocarcinoma. Long discussion about this. She is declining a referral for surgery. She is declining oncology referral. She would like to go home on hospice. I will make a referral for hospice, and hopefully she can be discharged with hospice care on Monday. 3. Gastrointestinal (GI) bleed. Back on aspirin. No sign of recurrence of bleeding. 4. Hypothyroidism. Continue current dose of levothyroxine. 5. Hypertension. Blood pressure is well controlled off antihypertensives. I will be moving her off of PCU up to the floor. She is on Cipro and Flagyl. I do not see a strong indication for these, so I discontinued those medications. She has DO NOT RESUSCITATE (DNR) status. Will continue to follow her complete blood counts (CBCs). It is Monday, so we will not get any patient and family services (PFS) support until Monday as far as a hospice referral.
[2017-07-01] MEDS: VITAMIN D 1,000 INTERNATIONAL UNITS TABLET PO SCH (20:25)
[2017-07-01] MEDS: ASCORBIC ACID 500 MG TAB PO SCH (20:25)
[2017-07-01] MEDS: oxyBUTYnin 5 MG TAB PO SCH (20:25)
[2017-07-01] MEDS: OMEGA-3 1050MG CAPSULE PO SCH (20:25)
[2017-07-02] MEDS: LEVOTHYROXINE 75MCG TABLET (0.075MG) PO SCH (05:48)
[2017-07-02] MEDS: LEVOTHYROXINE 100MCG TABLET (0.1MG) PO SCH (05:48)
[2017-07-02 05:54] LABS: MEAN CORPUSCULAR HEMOGLOBIN 35.1 pg (27.0-33.0); MEAN CORPUSCULAR HGB CONC 32.8 g/dl (32.0-36.5); MEAN CORPUSCULAR VOLUME 107.1 fl (80.0-96.0); RED CELL DISTRIBUTION WIDTH 13.5 % (11.5-14.5)
[2017-07-02 06:00] VITALS: BP 133/87
[2017-07-02 06:19] LABS: ANION GAP 9 MEQ/L (8-16); BLOOD UREA NITROGEN 5 MG/DL (7-18); CALCIUM LEVEL 8.3 MG/DL (8.8-10.2); CARBON DIOXIDE LEVEL 29 MEQ/L (21-32); CHLORIDE LEVEL 114 MEQ/L (98-107); GLOMERULAR FILTRATION RATE > 60.0 (>32); GLUCOSE, FASTING 102 MG/DL (83-110); POTASSIUM SERUM 3.5 MEQ/L (3.5-5.1); SODIUM LEVEL 152 MEQ/L (136-145)
[2017-07-02] MEDS: CHOLESTYRAMINE 4 GM PWD PKT PO SCH (08:34)
[2017-07-02] MEDS: ASPIRIN 81 MG ENTERIC TAB PO SCH (08:34)
[2017-07-02] MEDS: PANTOPRAZOLE 40MG TAB (PROTONIX) PO SCH (08:36)
[2017-07-02] MEDS: GABAPENTIN 300 MG CAP PO SCH ×2 (08:36→20:09)
[2017-07-02] MEDS: SENOKOT S TAB PO SCH ×2 (08:36→20:09)
[2017-07-02 14:00] VITALS: BP 154/72
--- NOTE | 2017-07-02 14:09 | IPN ---
DATE: 07/02/2017 Sunita is seen in [place] emergency department. She has had a recent stroke. notes that her left side is weak. She is dysarthric. MRI did not show the stroke but clinically she certainly has had one. She also has colon cancer for which she does not want surgical intervention. She is asking to see an oncologist, for reasons summarized below. Her oral intake is poor. She is becoming mildly hypernatremic. PHYSICAL EXAMINATION: VITAL SIGNS: Blood pressure 133/87, pulse of 100, respiratory rate 18, 92% oxygen saturation. GENERAL APPEARANCE: She is alert, conversant, in no distress. Speech is less dysarthric than yesterday. The longer she talks though the more dysarthric she gets. There is no ptosis of the eyes. She has some weakness in the left side of her face. Her left upper extremity is +4/5, left lower extremity -5/5 in strength, right side is normal. HEART: Regular rate and rhythm. LUNGS: Clear. LABORATORY DATA: White count 12,000, hemoglobin 9.5, and platelets 184. Sodium 152, potassium 3.5, BUN 5, creatinine 0.9, glucose 102. IMPRESSION: 1. Stroke with aphasia and left-sided weakness. Clinically, she definitely has had a stroke and her examination today shows more weakness in the arm though her speech is a little better. She is on aspirin. We are avoiding more potent antiplatelet drugs as well as anticoagulants due to recent bleeding cancer. Physical therapy will need to see her. Her wants to take her home with hospice but she needs to be strong enough to get there. 2. Cecal adenocarcinoma. She does not want any surgery for this. She initially declined an oncology referral. Now, she says she would like to speak to Alesia Gomes who is over at the oncologist office, "just so I know what to expect." I do not think it will work out seeing the oncologist once she is home on hospice, so we will ask the rounding team tomorrow to put an oncology consult in so she has a chance to speak with the oncologist while she is here. The patient still wants to be discharged home with hospice care. 3. Gastrointestinal (GI) bleed. No sign of recurrence. Continue aspirin. 4. Hypertension, off antihypertensives. Blood pressure is well-controlled. 5. Hypernatremia. I have asked the staff to increase water intake today. Recheck this tomorrow. The patient has DO NOT RESUSCITATE (DNR) status.
[2017-07-02] MEDS: oxyBUTYnin 5 MG TAB PO SCH (20:09)
[2017-07-02] MEDS: OMEGA-3 1050MG CAPSULE PO SCH (20:09)
[2017-07-02] MEDS: VITAMIN D 1,000 INTERNATIONAL UNITS TABLET PO SCH (20:09)
[2017-07-02] MEDS: ASCORBIC ACID 500 MG TAB PO SCH (20:09)
[2017-07-02 22:00] VITALS: BP 156/97
[2017-07-03] MEDS: LEVOTHYROXINE 100MCG TABLET (0.1MG) PO SCH (05:47)
[2017-07-03] MEDS: LEVOTHYROXINE 75MCG TABLET (0.075MG) PO SCH (05:47)
[2017-07-03 06:00] VITALS: BP 147/57
[2017-07-03 06:05] LABS: MEAN CORPUSCULAR HEMOGLOBIN 34.8 pg (27.0-33.0); MEAN CORPUSCULAR HGB CONC 32.4 g/dl (32.0-36.5); MEAN CORPUSCULAR VOLUME 107.6 fl (80.0-96.0); RED CELL DISTRIBUTION WIDTH 13.7 % (11.5-14.5); WHITE BLOOD COUNT 8.3 K/mm3 (4.0-10.0)
[2017-07-03 06:17] LABS: ANION GAP 6 MEQ/L (8-16); BLOOD UREA NITROGEN 8 MG/DL (7-18); CALCIUM LEVEL 7.9 MG/DL (8.8-10.2); CARBON DIOXIDE LEVEL 30 MEQ/L (21-32); CHLORIDE LEVEL 109 MEQ/L (98-107); CREATININE FOR GFR 0.87 MG/DL (0.55-1.02); GLOMERULAR FILTRATION RATE > 60.0 (>32); GLUCOSE, FASTING 95 MG/DL (83-110); POTASSIUM SERUM 3.6 MEQ/L (3.5-5.1); SODIUM LEVEL 145 MEQ/L (136-145)
--- NOTE | 2017-07-03 07:58 | IPNPDOC ---
Subjective Date Seen The patient was seen on 07/03/17. Subjective Chief Complaint/HPI The patient is a 86-year-old female admitted with a reason for visit of Gi Bleed. Events since last encounter Denies c/o. Tolerating po well. Constitutional: Denies: Chills, Fever, Night Sweats Pulmonary: Denies: Dyspnea, Cough Cardiovascular: Denies: Chest Pain, Palpitations, Orthopnea, Paroxysmal Noc. Dyspnea, Lt Headedness Gastrointestinal: Denies: Nausea, Vomiting, Abdominal Pain, Diarrhea, Constipation Objective Physical Examination General Exam: Positive: Alert, No Acute Distress Neck Exam: Positive: Supple, Negative: JVD Chest Exam: Positive: Clear to auscultation Heart Exam: Positive: Rate Normal, Regular Rhythm Abdomen Exam: Positive: Normal bowel sounds, Soft, Negative: Tenderness Extremity Exam: Negative: Edema Neuro Exam: Positive: Other (Alert, Oriented x 3, speech clear ) Assessment /Plan Problems (1) TIA (transient ischemic attack) Status: Acute Response to Treatment: Worse Discussed With: Nurse, Tap Grinder, Patient, Family with Pt Consent Problem Specific Plan: Monitor Clinically Problem Text: 06/30 - speech back to baseline. She has trouble finding words on rare occasion during the course of my conversation with her today which she states has been going on for a while and is baseline for her. Per Neurology, should start ASA if GI bleeding issue stable The patient had acutely worsening dysarthric symptoms starting about 10:30 AM. On further questioning of family members it appears that they had some concerns regarding her speech intelligibility stretching back as far as 2 days ago, however, they did not mention them to us, because they believed they were related to her acute illness and the hospital setting. I was called and informed about these changes at around 12:50 PM. I immediately assessed her and found she had significant dysarthria. She was only able to recite "[place] [employer] Little Parry" with about 50% intelligibility. She did not have any focal weakness noted. I ordered a stat CT of her head without contrast. I also immediately consulted Dr. Silverman of neurology. We had a discussion regarding thrombolysis. Our conclusions were that she was an unacceptable candidate for thrombolytic therapy because: the precise onset of her symptoms was not clear, she is currently admitted for an active GI bleed, she had a biopsy yesterday in a noncompressible area (cecum). I discussed this with her family right away. I also discussed the possibility of transfer to [place] for consideration for catheterization of her cerebral arteries and clot aspiration. I let them know that I feel that the risks associated with this procedure would likely outweigh the benefits given her current medical condition. The patient and her family carefully considered and agreed with my recommendations. I have ordered neuro checks every 2 hours 3 [address] Silverman wishes to start/resume antiplatelet therapy as soon as is safe, however, he does wish to speak to Dr. Hobbs before making the final decision on this. 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 Hospice consult placed and call with be made today. Anticipate DC home tomorrow. 06/30 - path report shows high grade mod-poorly differentiated adenocarcinoma colon Surgical Consult in computer, but no note yet 06/29 - Seen by Dr Hobbs and had Colonoscopy. 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 Biopsied. Severe diverticulosis from sigmoid to transverse colon. No evidence of diverticular bleeding. Non-bleeding external and internal hemorrhoids. (3) GI bleed Status: Acute Problem Specific Plan: Consult Specialist, Monitor Clinically, Repeat Labs Problem Text: 07/03/17: H/H stable 06/30 - see above regarding colon cancer - Hgb stable Probably could d/c abx if no longer think bleeding was from Diverticulitis - * d/W attending (4) Hypertension Status: Chronic Problem Specific Plan: Monitor Clinically Problem Text: 06/30 - Antihypertensives have been held. Blood pressures have been stable off antihypertensives. (5) Hypothyroidism Status: Chronic Problem Specific Plan: Monitor Clinically, Repeat Labs Problem Text: TSH was very high at 54.3. On Synthroid 200 mcg. 06/30 - Although TSH elevation could be acute phase, this seems very high for that. I will decrease dose of Synthroid - will need levels rechecked in 6 - 8 weeks (6) GERD (gastroesophageal reflux disease) Status: Chronic Problem Specific Plan: Monitor Clinically Problem Text: 06/30 - stable - change to once daily PPI (7) Villous adenoma Problem Specific Plan: Consult Specialist, Monitor Clinically, Repeat Labs Problem Text: 06/29 - Seen by Dr Hobbs and had Colonoscopy. 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 Biopsied. Severe diverticulosis from sigmoid to transverse colon. No evidence of diverticular bleeding. Non-bleeding external and internal hemorrhoids. Will consult surgery. 06/28 - Dr Hobbs from GI following the pt and is planning endoscopy. 06/27 - GI has been consulted. (8) IFG (impaired fasting glucose) Status: Chronic Problem Specific Plan: Monitor Clinically, Repeat Labs Problem Text: BS have been good. Monitor. (9) Diastolic dysfunction Status: Chronic Problem Specific Plan: Monitor Clinically Problem Text: Appears compensated. Plan/VTE VTE Prophylaxis Ordered?: Yes (TEDs and SCDs ordered) VS, I&O, 24H, Fishbone Vital Signs/I&O Vital Signs Date Time Temp Pulse Resp B/P (MAP) Pulse Ox O2 Delivery O2 Flow Rate FiO2 07/03/17 06:00 97.7 95 16 147/57 (87) 95 Room Air 07/01/17 07:15 1.0 I&O- Last 24 Hours up to 6 AM 07/03/17 05:59 Intake Total 1800 ml Output Total 0 ml Balance 1800 ml Laboratory Data 24H LABS Laboratory Tests 2 07/03/17 05:46: Anion Gap 6L, Glomerular Filtration Rate > 60.0, Blood Urea Nitrogen 8#, Creatinine 0.87, Sodium Level 145, Potassium Level 3.6, Chloride Level 109H, Carbon Dioxide Level 30, Calcium Level 7.9L CBC/BMP Laboratory Tests 07/03/17 05:46 Red Blood Count 2.67 L, Mean Corpuscular Volume 107.6 H, Mean Corpuscular Hemoglobin 34.8 H, Mean Corpuscular Hemoglobin Concent 32.4, Red Cell Distribution Width 13.7, Calcium Level 7.9 L Microbiology Microbiology 06/28/17 Stool Occult Blood ([facility]) - Final, Complete Pilar López COOLER CONVEYOR LOADER Jul 03, 2017 07:58
[2017-07-03] MEDS: CHOLESTYRAMINE 4 GM PWD PKT PO SCH (08:08)
[2017-07-03] MEDS: PANTOPRAZOLE 40MG TAB (PROTONIX) PO SCH (08:10)
[2017-07-03] MEDS: GABAPENTIN 300 MG CAP PO SCH (08:10)
[2017-07-03] MEDS: ASPIRIN 81 MG ENTERIC TAB PO SCH (08:10)
[2017-07-03] MEDS: SENOKOT S TAB PO SCH (08:10)
[2017-07-03] MEDS ORDERED: HYOS125TA PO (13:10)
[2017-07-03] MEDS ORDERED: LORA0.5T11 PO (13:10)
[2017-07-03] MEDS ORDERED: MORP20SO3 PO (13:10)
--- NOTE | 2017-07-03 15:39 | DSES ---
DATE OF ADMISSION: 06/26/2017 DATE OF DISCHARGE: 07/03/2017 ATTENDING PHYSICIAN: Dr. Donald Sears PRIMARY CARE PROVIDER: Dr. 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 The patient presented to the emergency department (ED) with intermittent bright red blood per rectum and loose dark stools. The patient also reported periumbilical pain intermittently and generalized weakness for two days prior to her presentation. The patient was subsequently admitted to family medicine service. Gastroenterology was consulted. She was placed on Protonix twice per day, clear liquid diet, placed on Cipro and Flagyl as well as IV fluids. HOSPITAL COURSE: The patient was evaluated by gastroenterology. Dr. Hobbs evaluated the patient and the patient is status post colonoscopy on 06/28/2017. A large obstructing mass was found in the cecum. 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 On 06/29/2017, neurology was consulted secondary to sudden onset of slurred speech. MRI was obtained and proved negative. The patient's family has been notified along with the patient of results of pathology. They have opted for a hospice consult. It was also deemed that the patient had some form of transient ischemic attack (TIA) or stroke with aphagia and left-sided weakness. The patient has proven that her left-sudden will continue. The patient's anticoagulants and antiplatelet drugs were held due to the recent bleeding cancer. Hospice was consulted today and evaluated the patient. Family agrees to go home and they would like to hear from an oncologist prior to discharge and we will arrange for that. PHYSICAL EXAMINATION: VITAL SIGNS: Stable. She is afebrile. HEENT: Neck is supple without lymphadenopathy or jugular venous distention (JVD). CARDIOVASCULAR: Heart rate and rhythm are regular. PULMONARY: Lungs are clear. NEUROLOGIC: The patient is alert and oriented times three. However, at times, she has trouble finding her words. She does show left upper extremity weakness on examination. PSYCHIATRIC: Affect is appropriate and congruent. DISCHARGE DIAGNOSES: 1. Adenocarcinoma of the colon. 2. Stroke with left-sided residual deficits. SECONDARY DIAGNOSES: Include: 1. Peripheral neuropathy. 2. Hypertension. 3. History of non-Hodgkin's lymphoma. 4. History of breast cancer. 5. History of hypothyroidism. 6. Diastolic grade 1 dysfunction. 7. Prior transient ischemic attack (TIA) history. 8. Irritable bowel syndrome. 9. Dyslipidemia. 10. Gastroesophageal reflux disease (GERD). 11. Impaired fasting glucose. 12. Vitamin D deficiency. 13. Degenerative disc disease. 14. Squamous cell cancer of the nose. 15. Villous adenoma of the colon. 16. Obstructive sleep apnea. 17. Charcot foot of the right lower extremity. MEDICATIONS AT DISCHARGE: - hyoscyamine 0.125 mg by mouth every four hours as needed for terminal secretions - lorazepam 0.5 mg by mouth every four hours as needed for anxiety and agitation - morphine sulfate 100 mg per 5 mL 0.25 to 1 mL by mouth every two hours as needed for pain or dyspnea - gabapentin 600 mg twice a day - levothyroxine 200 mcg by mouth daily - propranolol 80 mg by mouth at bedtime The patient is discharged in stable and satisfactory condition with no further questions at the time of discharge.
[2017-07-08 00:07] LABS: ACETYLCHOLINE RCPTOR BLOCK AB 11 % (0-25); ACETYLCHOLINE RCPTOR MODULATIN <12 % (0-20)
== END 2017-07-03 14:50 | disposition hospice, home (50) | DRG 374 ==
LOC: M ED 12:03 → M ED INP 17:18 → M PCU 23:25 → M MSPAV 07-01 14:44
PROVIDERS: ADMIT Hospitalist; ATTEND Family Medicine
PROC: 0DBH8ZX Excision of Cecum, Via Natural or Artificial Opening Endoscopic, Diagnostic (ICD-10-PCS; principal; 2017-06-28 15:00)
DX: C18.0 Malignant neoplasm of cecum (principal); I63.9 Cerebral infarction, unspecified; D62 Acute posthemorrhagic anemia; K92.2 Gastrointestinal hemorrhage, unspecified; I69.354 Hemiplegia and hemiparesis following cerebral infarction affecting left non-dominant side; E87.0 Hyperosmolality and hypernatremia; G62.9 Polyneuropathy, unspecified; I10 Essential (primary) hypertension; E03.9 Hypothyroidism, unspecified; Z66 Do not resuscitate; K58.0 Irritable bowel syndrome with diarrhea; E78.5 Hyperlipidemia, unspecified; K64.8 Other hemorrhoids; K64.4 Residual hemorrhoidal skin tags; E55.9 Vitamin D deficiency, unspecified; G47.33 Obstructive sleep apnea (adult) (pediatric); K21.9 Gastro-esophageal reflux disease without esophagitis; K63.5 Polyp of colon; I69.320 Aphasia following cerebral infarction; R73.01 Impaired fasting glucose; K57.30 Diverticulosis of large intestine without perforation or abscess without bleeding; Z86.73 Personal history of transient ischemic attack (TIA), and cerebral infarction without residual deficits; Z85.3 Personal history of malignant neoplasm of breast; Z85.828 Personal history of other malignant neoplasm of skin; Z85.79 Personal history of other malignant neoplasms of lymphoid, hematopoietic and related tissues; Z90.710 Acquired absence of both cervix and uterus; Z90.49 Acquired absence of other specified parts of digestive tract; Z86.010 Personal history of colon polyps; Z79.899 Other long term (current) drug therapy; Z79.82 Long term (current) use of aspirin; Z88.8 Allergy status to other drugs, medicaments and biological substances; Z91.018 Allergy to other foods; Z88.1 Allergy status to other antibiotic agents; Z91.19 Patient's noncompliance with other medical treatment and regimen